=== PATIENT | female | born 1960 | race Caucasian/White ===

== ENCOUNTER 2021-12-22 11:51 | Emergency (ER) | payer OTHER ==
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
[2021-12-22 14:34] VITALS: BP 172/81; TEMP 98; O2SAT 98
== END 2021-12-22 14:25 | disposition home or self-care (01) ==
LOC: ER 11:51
DX: S20.212A Contusion of left front wall of thorax, initial encounter (principal); R51.9 Headache, unspecified; V49.40XA Driver injured in collision with unspecified motor vehicles in traffic accident, initial encounter; J44.9 Chronic obstructive pulmonary disease, unspecified; Z95.1 Presence of aortocoronary bypass graft; Z88.2 Allergy status to sulfonamides
CPT/HCPCS: 70450; 71045; 72125; 99283

== ENCOUNTER 2024-10-02 12:46 | Inpatient (IN) | payer OTHER ==
--- OUTSIDE RECORDS SUMMARY | 2024-10-02 12:52 | XMS REPORT | Continuity of Care Document ---
Author Name Unknown Address [address] [facility] [address] [place] [address] [facility] [address] [facility] [address] [place] [address] Care Team Providers Care [facility] Cook Name Role Phone JOSE VARGHESE Primary Care Physician Unavailab BJ Galvez Attending Clinician Unavailable JOHN NATION K.HJordan Attending Clinician Unavailviridiana Nation MD, John K.H. Attending Clinician + [phone] Bj Philippe MD Attending Clinician [phone] John Nation MD K.H. Attending Clinician + [phone] LISBETH JIMENEZ Attending Clinician Unavailable LISBETH JIMENEZ Attending Clinician Unavailable Lisbeth Jimenez DO Attending Clinician [phone] Doctor Unassigned, Yonah Attending Clinician [facility] Attending Clinician Unavailable Zak Leija RN Attending Clinician UnavailBLESSING Melendez Attending Clinician Unavailable BLESSING ALEXANDER Attending Clinician Unavailable JACEY GARCIA Attending Clinician UnavailGLEN Arellano Attending Clinician Jacey Brown MD Attending Clinician [phone] GORGE CALLAHAN Attending Clinician Unavailable [place] Attending Clinician + [phone] SEAN CASTILLO Attending Clinician Unavail able SEAN CASTILLO Attending Clinician Unavail able JB PHILIPPE Admitting Clinician Unavailable Bj Philippe MD Admitting Clinician [phone] LISBETH JIMENZE Admitting Clinician GLEN Talbot Admitting Clinician Nacho blake Payers Payer Name Policy Type Policy Number Effective Date Expirati on Date Source [employer] MEDICARE [id number] 2023 00:00:00 [employer] MED[employer]VANTAGE [id number] 2020 00:00:00 [employer] [place] [id number] 2019 00:00:00 MEDICARE PART A \\T\\ B [id number] 2019 00:00:00 [facility] [id number] 2019 00:00:00 M[employer] GENERIC [id number] 2018 00:00:00 2019 00:00:00 Problems Condition Name Condition Details Condition Category Status Onset Date Resolution Date Last Treatment Date Treating Clinician Comments Source Abdominal aortic aneurysm (AAA) without rupture, unspecifie d part Abdominal aortic aneurysm (AAA) without rupture, unspecifie d part Disease Active 2023-08 00:00: 00 [facility] Stroke Stroke Disease Active 05-13 00:00: 00 [facility] Abdominal aortic aneurysm (AAA) without rupture Abdominal aortic aneurysm (AAA) without rupture Disease Active 01-24 00:00: 00 [facility] S/P CABG x 4 S/P CABG x 4 Disease Active 01-24 00:00: 00 [facility] 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 Disease Active 01-24 00:00: 00 [facility] Atypical chest pain Atypical chest pain Disease Active 01-24 00:00: 00 [facility] [place] (dyspnea on exertion) [place] (dyspnea on exertion) Disease Active 01-24 00:00: 00 [facility] 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 Disease Active 01-24 00:00: 00 [facility] Family history of premature CAD Family history of premature CAD Disease Active 01-24 00:00: 00 [facility] Essential hypertensi on Essential hypertensi on Disease Active 01-24 00:00: 00 [facility] Dyslipidem ia Dyslipidem ia Disease Active 01-24 00:00: 00 [facility] Tobacco abuse Tobacco abuse Disease Active 01-24 00:00: 00 [facility] Contracept vielka management Contracept vielka management Disease Active 11-03 00:00: 00 [facility] History of hysterecto my History of hysterecto my Disease Active 11-03 00:00: 00 [facility] Vaginal pain Vaginal pain Disease Active 11-03 00:00: 00 [facility] Obese Obese Disease Active 11-03 00:00: 00 [facility] Postmenopa usal atrophic vaginitis Postmenopa usal atrophic vaginitis Disease Active 11-03 00:00: 00 [facility] Incisional hernia Incisional hernia Disease Resolve d 604 00:00: 00 2015-11-04 00:00:00 2022-03-09 00:13:22 [facility] Calculus of ureter Calculus of ureter Disease Resolve d 2006-08 008 00:00: 00 2015-11-04 00:00:00 2015-11-04 13:26:15 [facility] Calculus of kidney Calculus of kidney Disease Resolve d 4-16 00:00: 00 2015-11-04 00:00:00 2015-11-04 13:26:14 [facility] Allergies, Adverse Reactions, Alerts Allergy Name Allergy Type Status Severity Reaction(s) Onset Date Inactive Date Treating Clinician Comments Source Perflutr en Lipid Microsph eres Drug Intolera nce Active Other - See comments 2016-08 00:00: 00 Severe pain at base of head and neck pain. [facility] PERFLUTR EN LIPID MICROSPH ERES DRUG INGREDI Active Med Other-Cmnt 2016-08 00:00: 00 [facility] Sulfa (Sulfona mide Antibiot ics) Propensi ty to adverse reaction s Active Rash 2005-08 00:00: 00 [facility] SULFA (SULFONA MIDE ANTIBIOT ICS) Drug Class Active Anaphylaxis 2005-08 00:00: 00 [facility] Social History Social Habit Start Date Stop Date Quantity Comments Source [facility] History of tobacco use Cigarette Smoker [facility] Alcoholic beverage intake 2024-08-18 00:00:00 2024-08-18 00:00:00 0 /d [facility] Cigarettes smoked current (pack per day) - Reported 2024-08-18 00:00:00 2024-08-18 00:00:00 [facility] Cigarette pack-years 2024-08-18 00:00:00 2024-08-18 00:00:00 [facility] Tobacco use and exposure 2024-08-18 00:00:00 2024-08-18 00:00:00 Smokeless tobacco non-user [facility] Alcohol intake 2023-09-15 00:00:00 2023-09-15 00:00:00 0 /d [facility] Exposure to SARS-CoV-2 (event) 2022-10-11 00:00:00 2022-10-21 09:28:00 Not sure [facility] History of Social function 2022-09-18 00:00:00 2022-09-18 00:00:00 [facility] Tobacco Comment 2022-05-26 00:00:00 2022-05-26 00:00:00 About 1 cigg a day [facility] Sex assigned at 1960 00:00:00 1960 00:00:00 [facility] Smoking Status Start Date Stop Date Source Occasional tobacco smoker 2024-08-18 00:00:00 [facility] Smokes tobacco daily 2024-06-21 00:00:00 [facility] Medications Ordered Medication Name Filled Medication Name Start Date Stop Date Current Medication? Ordering Clinician Indication Dosage Frequency Signature (SIG) Comments Components Source iopamidol (ISOVUE 370-500 mL) injection 90 mL 2023-08 17:00: 00 08-08 16:11 :00 No [id number] 90mL 90 mL, Intravenou s, ONCE, 1 dose, On Thu08/08/24 at 1100, Routine [facility] ranolazine 500 mg 12 hr tablet 2023-08 00:00: 00 Yes 500mg Take 1 tablet by mouth in the morning and 1 tablet in the evening. [facility] ISOSORBIDE MONONITRATE 30 mg 24 hr tablet 2023-08 00:00: 00 Yes 30mg Take 1 tablet by mouth twice daily [facility] empaglifloz in 10 mg tablet 2023-08 00:00: 00 Yes [id number] 10mg Take 1 tablet by mouth in the morning. [facility] metoprolol succinate XL 50 mg 24 hr tablet 2023-08 00:00: 00 09-25 05:59 :00 No [id number] 50mg Take 1 tablet by mouth in the morning and 1 tablet in the evening. Do all this for 90 days. [facility] HYDROcodone -acetaminop hen 5-325 mg tablet 2023-08 00:00: 00 07-04 05:59 :00 No [id number] 1{tbl} Take 1 tablet by mouth every 6 (six) hours as needed for Pain (scale 7-10) for up to 7 days. Indication s: acute pain [facility] pantoprazol e (PROTONIX) EC tablet 40 mg 2023-08 14:00: 00 06-26 17:38 :46 No 40mg 40 mg, Oral, DAILY, First dose on 06/25/24 at 0900, Until Discontinu ed, Routine, Indication for use: None of the above [facility] docusate (COLACE) capsule 100 mg 2023-08 14:00: 00 06-26 17:38 :46 No 100mg 100 mg, Oral, DAILY, First dose on 06/25/24 at 0900, Until Discontinu ed, Routine [facility] buPROPion SR (WELLBUTRIN SR) tablet 150 mg 2023-08 14:00: 00 06-26 17:38 :46 No 150mg 150 mg, Oral, DAILY, First dose on Thu06/25/24 at 0900, Until Discontinu ed, Routine [facility] aspirin chewable tablet 81 mg 2023-08 14:00: 00 06-26 17:38 :46 No 81mg 81 mg, Oral, DAILY, First dose on Thu06/25/24 at 0900, Until Discontinu ed, Routine [facility] heparin (porcine) injection 5,000 Units 2023-08 13:00: 00 06-26 17:38 :46 No 5000U 5,000 Units, Subcutaneo us, Q12H, First dose on Thu06/25/24 at 0800, Until Discontinu ed, Routine [facility] atorvastati n (LIPITOR) tablet 80 mg 2023-08 02:00: 00 06-26 17:38 :46 No 80mg 80 mg, Oral, QHS, First dose on Thu06/24/24 at 2100, Until Discontinu ed, Routine [facility] ranolazine (RANEXA) 12 hr tablet 500 mg 2023-08 01:00: 00 06-26 17:38 :46 No 500mg 500 mg, Oral, BID, First dose on Thu06/24/24 at 2000, Until Discontinu ed, Routine [facility] metoprolol succinate XL (TOPROL XL) tablet 50 mg 2023-08 01:00: 00 06-26 19:38 :47 No 50mg 50 mg, Oral, BID, First dose on Thu06/24/24 at 2000, Until Discontinu ed, Routine [facility] divalproex (DEPAKOTE) delayed release tablet 250 mg 2023-08 01:00: 00 06-26 17:38 :46 No 250mg 250 mg, Oral, Q12H, First dose on Thu06/24/24 at 2000, Until Discontinu ed, Routine [facility] acetaminoph en (TYLENOL) tablet 650 mg 2023-08 18:00: 00 06-26 17:38 :46 No 650mg 650 mg, Oral, Q6H, First dose on Thu06/24/24 at 1300, Until Discontinu ed, Routine [facility] oxyCODONE immediate release tablet 5 mg 2023-08 17:54: 28 06-26 17:38 :46 No 5mg 5 mg, Oral, Q6HPRN, Starting on Thu06/24/24 at 1254, Until 06/26/24 at 1138, Routine, Pain (scale 4-6), english faculty member approving Restricted medication : HUDSON MAO [facility] bupivacaine (preserv free) (SENSORCAIN E MPF) 0.25 % (2.5 mg/mL) injection 2023-08 17:24: 00 06-24 17:44 :13 No PRN, Starting on Thu06/24/24 at 1224, Until Thu06/24/24 at 1244, Routine, Intra-op [facility] ondansetron (ZOFRAN (PF)) injection 4 mg 2023-08 17:08: 10 06-26 17:38 :46 No 4mg [facility] ipratropium -albuteroL (DUONEB) 0.5 mg-3 mg(2.5 mg base)/3 mL nebulizer solution 3 mL 2023-08 17:06: 04 06-26 17:38 :46 No 1{ampul e} [facility] albuterol (VENTOLIN) inhaler 2 Puff 2023-08 17:06: 04 06-26 17:38 :46 No 2{puff} [facility] heparin 10,000 units in NS 1000 mL for vascular 2023-08 13:27: 00 06-24 17:44 :13 No PRN, Starting on Thu06/24/24 at 0827, Intra-op [facility] atorvastati n 80 mg tablet 2023-08 007 00:00: 00 Yes [id number] 80mg TAKE ONE (1) TABLET BY MOUTH AT BEDTIME. [facility] iopamidol (ISOVUE 370-500 mL) injection 96 mL 05-23 18:15: 00 05-23 18:38 :00 No [id number] 96mL 96 mL, Intravenou s, ONCE, 1 dose, On Thu05/23/24 at 1315, Routine [facility] varenicline 1 mg tablet 05-18 00:00: 00 Yes 1mg Take 1 tablet by mouth in the morning and 1 tablet in the evening. [facility] ISOSORBIDE MONONITRATE 30 mg 24 hr tablet 04-14 00:00: 00 07-18 00:00 :00 No 30mg Take 1 tablet by mouth twice daily [facility] empaglifloz in 10 mg tablet 02-17 00:00: 00 07-04 00:00 :00 No [id number] 10mg Take 1 tablet by mouth in the morning. [facility] atorvastati n 80 mg tablet - 00:00: 00 05-30 00:00 :00 No [id number] 80mg TAKE ONE (1) TABLET BY MOUTH AT BEDTIME. [facility] divalproex 250 mg delayed release tablet 10-28 10:04: 35 Yes 250mg Take 1 tablet by mouth every 12 (twelve) hours. [facility] ipratropium -albuteroL 0.5 mg-3 mg(2.5 mg base)/3 mL nebulizer solution 10-28 10:04: 35 Yes 3mL Inhale 3 mL every 6 (six) hours as needed for Wheezing. [facility] ranolazine 500 mg 12 hr tablet 10-21 00:00: 00 Yes 500mg Take 1 tablet by mouth in the morning and 1 tablet in the evening. [facility] aspirin 81 mg chewable tablet 10-15 08:51: 55 Yes [id number] 81mg Take 1 tablet by mouth in the morning. [facility] empaglifloz in 10 mg tablet 10-15 00:00: 00 02-16 00:00 :00 No [id number] 10mg Take 1 tablet by mouth in the morning. [facility] nitroglycer in 0.4 mg sublingual tablet 08-26 00:00: [id number] 1 tablet under the tongue every 5 (five) minutes as needed for Chest pain. [facility] metoprolol succinate XL 100 mg 24 hr tablet 08-26 00:00: 00 06-26 00:00 :00 No [id number] 100mg Take 1 tablet by mouth in the morning and 1 tablet in the evening. [facility] ISOSORBIDE MONONITRATE 30 mg 24 hr tablet 2022-08 00:00: 00 Yes 30mg TAKE ONE (1) TABLET(S) BY MOUTH TWICE A DAY. [facility] mupirocin 2 % ointment 2022-08 00:00: 00 07-14 00:00 :00 No [id number] Apply to area(s) 3 (three) times daily. [facility] docusate 100 mg capsule 2022-08 0 12:51: 16 Yes 100mg Take 1 capsule by mouth in the morning. [facility] iopamidol (ISOVUE 370-500 mL) injection 90 mL 05-19 14:15: 00 05-19 13:30 :00 No [id number] 90mL 90 mL, Intravenou s, ONCE, 1 dose, On Thu05/19/23 at 0915, Routine [facility] traMADOL 50 mg tablet 05-18 07:53: 39 05-18 00:00 :00 No 50mg Take 50 mg by mouth every 6 (six) hours as needed. [facility] Carisoprodo l 250 mg tablet 05-18 07:53: 30 05-18 00:00 :00 No 1{tbl} Take 1 tablet by mouth 2 (two) times daily as needed. [facility] calcium carb/vitami n D2/soyb (ONE-A-DAY BONE STRENGTH ORAL) 05-18 07:53: 27 05-18 00:00 :00 No Take by mouth. [facility] aspirin 81 mg chewable tablet 04-16 13:14: 34 Yes [id number] 81mg Take 1 tablet by mouth in the morning. [facility] atorvastati n 80 mg tablet 03-02 00:00: 00 11-23 00:00 :00 No [id number] 80mg Take 1 tablet by mouth at bedtime. [facility] ISOSORBIDE MONONITRATE 30 mg 24 hr tablet 10-02 00:00: 00 07-20 00:00 :00 No TAKE 1 TABLET BY MOUTH TWICE DAILY [facility] aspirin 81 mg chewable tablet 09-18 09:09: 28 Yes [id number] 81mg Take 81 mg by mouth daily. [facility] traMADOL 50 mg tablet 09-18 08:47: 49 Yes 50mg Take 50 mg by mouth every 6 (six) hours as needed. [facility] nitroglycer in 0.4 mg sublingual tablet 09-18 00:00: 00 08-26 00:00 :[id number] 1 tablet under the tongue every 5 (five) minutes as needed for Chest pain for up to 30 doses. [facility] METOPROLOL SUCCINATE XL 100 mg 24 hr tablet 09-02 00:00: 00 08-26 00:00 :00 No TAKE 1 TABLET BY MOUTH TWICE DAILY [facility] docusate 100 mg capsule 03-18 09:53: 17 Yes 100mg Take 100 mg by mouth daily. [facility] traMADOL 50 mg tablet 03-18 09:53: 17 Yes 50mg Take 50 mg by mouth every 6 (six) hours as needed. [facility] ALPRAZolam (XANAX) 2 mg tablet 03-18 09:53: 17 Yes 2mg Take 1 tablet by mouth at bedtime as needed for Sleep. [facility] aspirin 81 mg chewable tablet 03-18 09:53: 17 Yes [id number] 81mg Take 81 mg by mouth daily. [facility] buPROPion SR 150 mg SR tablet 03-14 00:00: 00 Yes 1{tbl} Take 1 tablet by mouth in the morning. [facility] buPROPion SR 150 mg SR tablet 03-14 00:00: 00 Yes 150mg Take 1 tablet by mouth in the morning. [facility] metoprolol succinate XL 100 mg 24 hr tablet 03-07 00:00: 00 09-02 00:00 :00 No 100mg Take 100 mg by mouth in the morning and 100 mg in the evening. [facility] ATORVASTATI N 80 mg tablet 01-13 00:00: 00 03-02 00:00 :00 No [id number] TAKE 1 TABLET BY MOUTH EVERY NIGHT AT BEDTIME [facility] isosorbide mononitrate 30 mg 24 hr tablet 12-28 00:00: 00 10-02 00:00 :00 No 30mg Take 30 mg by mouth in the morning and 30 mg in the evening. [facility] albuterol 90 mcg/actuati on inhaler 2020-08 00:00: 00 Yes [id number] 2{puff} Inhale 2 Puffs every 6 (six) hours as needed for Wheezing or Shortness of Breath. [facility] tiotropium 18 mcg inhalation 2020-08 00:00: 00 06-24 00:00 :00 No [id number] 18ug Inhale 1 capsule daily. [facility] calcium carb/vitami n D2/soyb (ONE-A-DAY BONE STRENGTH ORAL) 12-04 08:21: 27 Yes Take by mouth. [facility] Carisoprodo l 250 mg tablet 12-04 08:21: 27 Yes 1{tbl} Take 1 tablet by mouth 2 (two) times daily as needed. [facility] nitroglycer in 0.4 mg sublingual tablet 09-17 00:00: 00 09-18 00:00 :[id number] 1 tablet under the tongue every 5 (five) minutes as needed for Chest pain. [facility] DIVALPROEX 250 mg EC tablet 09-29 00:00: 00 05-18 00:00 :00 No [id number] TAKE 1 TABLET BY MOUTH EVERY 12 HOURS [facility] HYDROcodone -acetaminop hen 10-325 mg tablet 2017-08 00:00: 00 Yes [id number] 1{tbl} Take 1 tablet by mouth every 6 (six) hours as needed (atypcial chest pain). [facility] Immunizations Ordered Immunization Name Filled Immunization Name Date Status Comments Source TD, NOS 2007-11-02 00:00:00 Completed [facility] TD, NOS 2007-11-02 00:00:00 Completed [facility] TD, NOS 2007-11-02 00:00:00 Completed [facility] TD, NOS 2007-11-02 00:00:00 Completed [facility] TD, NOS 2007-11-02 00:00:00 Completed [facility] TD, NOS 2007-11-02 00:00:00 Completed [facility] TD, NOS 2007-11-02 00:00:00 Completed [facility] TD, NOS 2007-11-02 00:00:00 Completed [facility] TD, NOS 2007-11-02 00:00:00 Completed [facility] TD, NOS 2007-11-02 00:00:00 Completed [facility] TD, NOS 2007-11-02 00:00:00 Completed [facility] TD, NOS 2007-11-02 00:00:00 Completed [facility] TD, NOS 2007-11-02 00:00:00 Completed [facility] TD, NOS 2007-11-02 00:00:00 Completed [facility] Td 2007-11-02 00:00:00 Completed [facility] Td 2007-11-02 00:00:00 Completed [facility] TD, NOS Unknown Completed [facility] TD, NOS Unknown Completed [facility] TD, NOS Unknown Completed [facility] TD, NOS Unknown Completed [facility] TD, NOS Unknown Completed [facility] TD, NOS Unknown Completed [facility] TD, NOS Unknown Completed [facility] TD, NOS Unknown Completed [facility] TD, NOS Unknown Completed [facility] TD, NOS Unknown Completed [facility] TD, NOS Unknown Completed [facility] TD, NOS Unknown Completed [facility] TD, NOS Unknown Completed [facility] TD, NOS Unknown Completed [facility] TD, NOS Unknown Completed [facility] TD, NOS Unknown Completed [facility] TD, NOS Unknown Completed [facility] TD, NOS Unknown Completed [facility] TD, NOS Unknown Completed [facility] TD, NOS Unknown Completed [facility] TD, NOS Unknown Completed [facility] TD, NOS Unknown Completed [facility] TD, NOS Unknown Completed [facility] Vital Signs Vital Name Observation Time Observation Value Comments S ource Systolic blood pressure 2024-08-18 15:19:00 135 mm[Hg] [facility] Diastolic blood pressure 2024-08-18 15:19:00 72 mm[Hg] [facility] Heart rate 2024-08-18 15:19:00 55 /min [facility] Res[facility] rate 2024-08-18 15:19:00 16 /min obs [facility] Body height 2024-08-18 15:19:00 157.5 cm stated [facility] Body weight 2024-08-18 15:19:00 62.914 kg [facility] BMI 2024-08-18 15:19:00 25.37 kg/m2 [facility] Oxygen saturation in Arterial blood by Pulse oximetry 2024-08-18 15:19:00 95 /min [facility] Body height 2024-06-26 16:40:00 157.5 cm [facility] Body weight 2024-06-26 16:40:00 63.8 kg [facility] BMI 2024-06-26 16:40:00 25.72 kg/m2 [facility] Systolic blood pressure 2024-06-26 16:00:00 133 mm[Hg] [facility] Diastolic blood pressure 2024-06-26 16:00:00 64 mm[Hg] [facility] Heart rate 2024-06-26 16:00:00 68 /min [facility] Respiratory rate 2024-06-26 16:00:00 16 /min [facility] Oxygen saturation in Arterial blood by Pulse oximetry 2024-06-26 16:00:00 96 /min [facility] Body temperature 2024-06-26 14:00:00 37.72 Franchesca [facility] Systolic blood pressure 2024-06-24 10:48:00 133 mm[Hg] [facility] Diastolic blood pressure 2024-06-24 10:48:00 69 mm[Hg] [facility] Heart rate 2024-06-24 10:48:00 65 /min [facility] Body temperature 2024-06-24 10:48:00 35.22 Franchesca [facility] Respiratory rate 2024-06-24 10:48:00 18 /min [facility] Body height 2024-06-24 10:48:00 157.5 cm [facility] Body weight 2024-06-24 10:48:00 63.8 kg [facility] BMI 2024-06-24 10:48:00 25.72 kg/m2 [facility] Oxygen saturation in Arterial blood by Pulse oximetry 2024-06-24 10:48:00 99 /min [facility] Systolic blood pressure 2024-06-09 19:49:00 115 mm[Hg] [facility] Diastolic blood pressure 2024-06-09 19:49:00 61 mm[Hg] [facility] Heart rate 2024-06-09 19:49:00 59 /min [facility] Body temperature 2024-06-09 19:49:00 36.39 Franchesca [facility] Respiratory rate 2024-06-09 19:49:00 20 /min [facility] Body height 2024-06-09 19:49:00 157.5 cm [facility] Body weight 2024-06-09 19:49:00 64.864 kg [facility] BMI 2024-06-09 19:49:00 26.16 kg/m2 [facility] Oxygen saturation in Arterial blood by Pulse oximetry 2024-06-09 19:49:00 97 /min [facility] Systolic blood pressure 2024-05-12 17:54:00 119 mm[Hg] [facility] Diastolic blood pressure 2024-05-12 17:54:00 72 mm[Hg] [facility] Heart rate 2024-05-12 17:54:00 56 /min [facility] Body temperature 2024-05-12 17:54:00 36 Franchesca [facility] Body height 2024-05-12 17:54:00 162.6 cm [facility] Body weight 2024-05-12 17:54:00 63.866 kg [facility] BMI 2024-05-12 17:54:00 24.17 kg/m2 [facility] Oxygen saturation in Arterial blood by Pulse oximetry 2024-05-12 17:54:00 93 /min [facility] Systolic blood pressure 2023-10-29 15:51:00 113 mm[Hg] [facility] Diastolic blood pressure 2023-10-29 15:51:00 71 mm[Hg] [facility] Heart rate 2023-10-29 15:51:00 67 /min [facility] Body height 2023-10-29 15:51:00 154.9 cm [facility] Body weight 2023-10-29 15:51:00 62.687 kg [facility] BMI 2023-10-29 15:51:00 26.11 kg/m2 [facility] Oxygen saturation in Arterial blood by Pulse oximetry 2023-10-29 15:51:00 97 /min [facility] Systolic blood pressure 2023-10-15 14:58:00 145 mm[Hg] [facility] Diastolic blood pressure 2023-10-15 14:58:00 78 mm[Hg] [facility] Heart rate 2023-10-15 14:58:00 62 /min [facility] Oxygen saturation in Arterial blood by Pulse oximetry 2023-10-15 14:58:00 96 /min [facility] Body temperature 2023-10-15 14:57:00 36.39 Franchesca [facility] Respiratory rate 2023-10-15 14:57:00 19 /min [facility] Body height 2023-10-15 14:57:00 154.9 cm per pt [facility] Body weight 2023-10-15 14:57:00 61.417 kg [facility] BMI 2023-10-15 14:57:00 25.58 kg/m2 [facility] Systolic blood pressure 2023-07-08 19:14:00 108 mm[Hg] [facility] Diastolic blood pressure 2023-07-08 19:14:00 61 mm[Hg] [facility] Heart rate 2023-07-08 19:14:00 62 /min [facility] Body temperature 2023-07-08 19:14:00 36.17 [facility] Respiratory rate 2023-07-08 19:14:00 18 /min [facility] Body weight 2023-07-08 19:14:00 64.411 kg [facility] BMI 2023-07-08 19:14:00 25.97 kg/m2 [facility] Oxygen saturation in Arterial blood by Pulse oximetry 2023-07-08 19:14:00 96 /min [facility] Systolic blood pressure 2023-05-27 17:50:00 119 mm[Hg] [facility] Diastolic blood pressure 2023-05-27 17:50:00 70 mm[Hg] [facility] Heart rate 2023-05-27 17:50:00 72 /min [facility] Body temperature 2023-05-27 17:50:00 36.22 [facility] Respiratory rate 2023-05-27 17:50:00 16 /min [facility] Body height 2023-05-27 17:50:00 157.5 cm [facility] Body weight 2023-05-27 17:50:00 63.05 kg [facility] BMI 2023-05-27 17:50:00 25.42 kg/m2 [facility] Oxygen saturation in Arterial blood by Pulse oximetry 2023-05-27 17:50:00 97 /min [facility] Systolic blood pressure 2023-05-18 12:58:00 143 mm[Hg] [facility] Diastolic blood pressure 2023-05-18 12:58:00 73 mm[Hg] [facility] Heart rate 2023-05-18 12:58:00 60 /min [facility] Body temperature 2023-05-18 12:58:00 35.89 [facility] Respiratory rate 2023-05-18 12:58:00 16 /min [facility] Body height 2023-05-18 12:58:00 154.9 cm [facility] Body weight 2023-05-18 12:58:00 64.411 kg [facility] BMI 2023-05-18 12:58:00 26.83 kg/m2 [facility] Oxygen saturation in Arterial blood by Pulse oximetry 2023-05-18 12:58:00 96 /min [facility] Systolic blood pressure 2023-05-14 18:16:00 108 mm[Hg] [facility] Diastolic blood pressure 2023-05-14 18:16:00 63 mm[Hg] [facility] Heart rate 2023-05-14 18:16:00 56 /min [facility] Body temperature 2023-05-14 18:16:00 36.5 [facility] Respiratory rate 2023-05-14 18:16:00 18 /min [facility] Body height 2023-05-14 18:16:00 154.9 cm [facility] Body weight 2023-05-14 18:16:00 63.957 kg [facility] BMI 2023-05-14 18:16:00 26.64 kg/m2 [facility] Oxygen saturation in Arterial blood by Pulse oximetry 2023-05-14 18:16:00 95 /min [facility] Systolic blood pressure 2023-04-30 15:21:00 137 mm[Hg] [facility] Diastolic blood pressure 2023-04-30 15:21:00 86 mm[Hg] [facility] Heart rate 2023-04-30 15:21:00 60 /min [facility] Body height 2023-04-30 15:21:00 154.9 cm [facility] 2023-04-30 15:21:00 64.501 kg [facility] BMI 2023-04-30 15:21:00 26.87 kg/m2 [facility] Oxygen saturation in Arterial blood by Pulse oximetry 2023-04-30 15:21:00 95 /min [facility] Respiratory rate 2023-04-30 15:20:00 19 /min [facility] Systolic blood pressure 2023-04-16 18:19:00 120 mm[Hg] [facility] Diastolic blood pressure 2023-04-16 18:19:00 69 mm[Hg] [facility] Heart rate 2023-04-16 18:19:00 49 /min [facility] Body temperature 2023-04-16 18:19:00 36.17 [facility] Respiratory rate 2023-04-16 18:19:00 17 /min [facility] Body height 2023-04-16 18:19:00 154.9 cm [facility] Body weight 2023-04-16 18:19:00 65.409 kg [facility] BMI 2023-04-16 18:19:00 27.25 kg/m2 [facility] Oxygen saturation in Arterial blood by Pulse oximetry 2023-04-16 18:19:00 98 /min [facility] Systolic blood pressure 2022-10-21 16:04:00 138 mm[Hg] [facility] Diastolic blood pressure 2022-10-21 16:04:00 82 mm[Hg] [facility] Heart rate 2022-10-21 16:04:00 59 /min [facility] Respiratory rate 2022-10-21 16:02:00 19 /min [facility] Body height 2022-10-21 16:02:00 154.9 cm [facility] Body weight 2022-10-21 16:02:00 68.402 kg [facility] BMI 2022-10-21 16:02:00 28.49 kg/m2 [facility] Oxygen saturation in Arterial blood by Pulse oximetry 2022-10-21 16:02:00 95 /min [facility] Systolic blood pressure 2022-09-18 14:49:00 140 mm[Hg] [facility] Diastolic blood pressure 2022-09-18 14:49:00 77 mm[Hg] [facility] Heart rate 2022-09-18 14:49:00 67 /min [facility] Body temperature 2022-09-18 14:49:00 36.33 [facility] Body height 2022-09-18 14:49:00 154.9 cm [facility] Body weight 2022-09-18 14:49:00 68.176 kg [facility] BMI 2022-09-18 14:49:00 28.40 kg/m2 [facility] Oxygen saturation in Arterial blood by Pulse oximetry 2022-09-18 14:49:00 97 /min [facility] Systolic blood pressure 2022-05-26 13:49:00 129 mm[Hg] [facility] Diastolic blood pressure 2022-05-26 13:49:00 83 mm[Hg] [facility] Heart rate 2022-05-26 13:49:00 64 /min [facility] Body temperature 2022-05-26 13:49:00 36.17 [facility]sc[facility] Body height 2022-05-26 13:49:00 154.9 cm [facility] Body weight 2022-05-26 13:49:00 65.318 kg [facility] BMI 2022-05-26 13:49:00 27.21 kg/m2 [facility] Oxygen saturation in Arterial blood by Pulse oximetry 2022-05-26 13:49:00 100 /min [facility] Systolic blood pressure 2022-04-21 15:52:00 116 mm[Hg] [facility] Diastolic blood pressure 2022-04-21 15:52:00 66 mm[Hg] [facility] Heart rate 2022-04-21 15:52:00 59 /min [facility] Body height 2022-04-21 15:52:00 154.9 cm [facility] Body weight 2022-04-21 15:52:00 63.231 kg [facility] BMI 2022-04-21 15:52:00 26.34 kg/m2 [facility] Oxygen saturation in Arterial blood by Pulse oximetry 2022-04-21 15:52:00 99 /min [facility] Procedures Procedure Date / Time Performed Performing Clinician Source MAGNESIUM 2024-06-26 10:53:00 Juliette Hunter [facility] BASIC METABOLIC PANEL (NA, K, CL, CO2, GLUCOSE, BUN, CREATININE, CA) 2024-06-26 10:53:00 Chel Hunter [facility] CBC WITHOUT DIFF 2024-06-26 10:53:00 Lety Hunter [facility] MAGNESIUM 2024-06-26 10:53:00 Juliette Hunter [facility] BASIC METABOLIC PANEL (NA, K, CL, CO2, GLUCOSE, BUN, CREATININE, CA) 2024-06-26 10:53[facility]00 [facility] 2024-06-26 10:53[facility]00 [facility] 2024-06-25 07:45:00 [facility] MAGNESIUM 2024-06-25 07:45:00 J [facility] BASIC METABOLIC PANEL (NA, K, CL, CO2, GLUCOSE, BUN, CREATININE, CA) 2024-06-25 07:45:00 J Luis Rico [facility] CBC WITH DIFF 2024-06-25 07:45:00 J Luis Rico [facility] PHOSPHORUS 2024-06-25 07:45:00 [facility] 2024-06-25 07:45:00 Jacky [facility] BASIC METABOLIC PANEL (NA, K, CL, CO2, GLUCOSE, BUN, CREATININE, CA) 2024-06-25 07:45:00 [facility] 2024-06-25 07:45:00 J Luis Rico [facility] MAGNESIUM 2024-06-24 18:42:00 [facility] (NA, K, CL, CO2, GLUCOSE, BUN, CREATININE, CA) 2024-06-24 18:42:00 [facility] 2024-06-24 18:42:00 Muñoz, [facility] MRSA / MSSA SCREEN BY PCR, TIA 2024-06-24 18:42:00 J Luis Rico [facility] MAGNESIUM 2024-06-24 18:42:00 [facility]IC [facility]OLIC PANEL (NA, K, CL, CO2, GLUCOSE, BUN, CREATININE, CA) 2024-06-24 18:42:00 [facility]FF 2024-06-24 18:42:00 Muñoz, [facility] MRSA / MSSA SCREEN BY PCR, [facility] 2024-06-24 18:42:00 J Luis Rico [facility] FL TIME OR (NON-REPORTABLE) 2024-06-24 17:10:00 [facility] [place] [facility] ([facility]-RE[facility] 2024-06-24 17:10:00 Chel Hunter [facility] POCT ACT HIGH RANGE 2024-06-24 13:41:00 [facility] 2024-06-24 13:29:00 Jose Martin [facility] [id number] - [place] EV[place] RPR DPLMNT [id number] NDGFT 2024-06-24 12:08:00 Jose Martin [facility] [id number] - [place] RPR DPLMNT [id number] NDGFT 2024-06-24 12:08:00 Jose Martin [facility] [id number] - [place] EV[place] RPR DPLMNT AORTO-AORTIC NDGFT 2024-06-24 12:08:00 Jose Martin [facility] FEMORAL ENDARTERECTOMY 2024-06-24 12:08:00 Jose Martin [facility] HB ABO GROUPING 2024-06-24 11:06:00 Jose Martin [facility] HB ABO GROUPING 2024-06-24 11:06:00 Jose Martin [facility] CT ANGIOGRAM ABDOMEN/PELVIS 2024-05-23 18:37:00 Jose Martin [facility] HB CREATININE SERUM/BLOOD FOR IMAGING 2024-05-23 18:16:00 Jose Martin [facility] CONSENT/REFUSAL FOR DIAGNOSIS AND TREATMENT 2023-10-29 15:41:23 Doctor Unassigned, Yonah [facility] CAROTID DUPLEX BILATERAL - BY VASCULAR LAB 2023-06-04 20:29:00 Jose Martin [facility] CT ANGIOGRAM ABDOMEN/PELVIS 2023-05-19 13:29:24 Jose Martin [facility] HB CREATININE SERUM/BLOOD FOR IMAGING 2023-05-19 13:05:00 Jose Martin [facility] AUTHORIZATION TO RELEASE PHI TO [facility] 2023-04-30 05:01:00 Doctor Unassigned, Yonah [facility] HB ECG ROUTINE & RHYTHM STRIP 2023-04-16 18:21:51 John Nation [facility] REFERRAL- REQUEST/RESPONSE 2023-04-10 05:01:00 Doctor Unassigned, Yonah [facility] ASSIGNMENT OF BENEFITS 2022-10-21 15:29:55 Docto r Unassigned, Yonah [facility] Encounters Start Date/Time End Date/Time Encounter Type Admission Type Attending Clinicians Care Facility Care Department Encounter ID Source 2024-08-18 09:30:00 2024-08-18 09:58:48 Outpatient JOHN ROSE [facility] [id number] [facility] 2024-08-18 09:30:00 2024-08-18 09:58:48 Office Visit John Nation [facility] 1.2.840.114 350.1.13.10 4.2.7.2.686 [id number] [facility] 2024-08-08 09:26:29 2024-08-08 23:59:00 Outpatient BJ MUNROE [facility] [id number] [facility] 2024-08-08 09:26:29 2024-08-08 23:59:00 Hospital Encounter Bj Philippe [facility] 1..840.114 350.1.13.10 4.2.7.2.686 [id number] [facility] 2024-07-25 09:45:00 2024-07-25 09:45:00 Outpatient BJ MUNROE [facility] [id number] [facility] 2024-07-17 00:00:00 2024-07-18 08:42:22 Refill Jonh Nation [facility] 1.2.840.114 350.1.13.10 4.2.7.2.686 [id number] [facility] 2024-07-14 14:45:00 2024-07-14 14:55:13 Outpatient R BJ PHILIPPE [facility] [id number] [facility] 2024-07-14 14:45:00 2024-07-14 14:55:13 Office Visit Bj Philippe [facility] 1.2.840.114 350.1.13.10 4.2.7.2.686 [id number] [facility] 2024-07-04 00:00:00 2024-07-04 15:29:30 John Kirk [facility] 1.2.840.114 350.1.13.10 4.2.7.2.686 [id number] [facility] 2024-06-24 05:29:00 2024-06-26 11:34:00 Inpatient R BJ PHILIPPE [facility] [id number] [facility] 2024-06-24 05:29:00 2024-06-26 11:34:00 Hospital Encounter Bj Philippe [facility] 1.2.840.114 350.1.13.10 4.2.7.2.686 [id number] [facility] 2024-06-24 07:00:00 2024-06-24 11:56:00 Surgery Bj Philippe [facility] 1.2.840.114 350.1.13.10 4.2.7.2.686 [id number] [facility] 2024-06-09 15:00:00 2024-06-09 15:32:40 Outpatient R BJ PHILIPPE [facility] [id number] [facility] 2024-06-09 15:00:00 2024-06-09 15:32:40 Office Visit Bj Philippe [facility] 1.2.840.114 350.1.13.10 4.2.7.2.686 [id number] [facility] 2024-05-23 12:51:40 2024-05-23 23:59:00 Outpatient R BJ PHIILPPE [facility] [id number] [facility] 2024-05-23 11:25:10 2024-05-23 23:59:00 Hospital Encounter Bj Philippe [facility] 1.2.840.114 350.1.13.10 4.2.7.2.686 [id number] [facility] 2024-05-12 13:00:00 2024-05-12 13:15:03 Outpatient R BJ PHILIPPE [facility] [id number] [facility] 2024-05-12 13:00:00 2024-05-12 13:15:03 Office Visit Bj Philippe [facility] 1.2.840.114 350.1.13.10 4.2.7.2.686 [id number] [facility] 2024-02-17 00:00:00 2024-02-18 10:13:46 Refill John Nation [facility] 1.2.840.114 350.1.13.10 4.2.7.2.686 [id number] [facility] 2023-11-24 00:00:00 2023-11-24 00:00:00 Refill [facility] 1.2.840.114 350.1.13.10 4.2.7.2.686 [id number] [facility] 2023-10-29 10:00:00 2023-10-29 10:15:31 Outpatient R LISBETH JIMENEZ SHIWAN [facility] [id number] [facility] 2023-10-29 10:00:00 2023-10-29 10:15:31 Office Visit Lisbeth Jimenez [facility] 1.2.840.114 350.1.13.10 4.2.7.2.686 [id number] [facility] 2023-10-29 00:00:00 2023-10-29 00:00:00 Orders Only Doctor Unassigned, Yonah [facility] 1.2840.114 350.1.13.10 4.2.7.2.686 [id number] [facility] 2023-10-20 00:00:00 2023-10-20 00:00:00 Telephone John Nation [facility] 1.2.840.114 350.1.13.10 4.2.7.2.686 [id number] [id number] [facility] 2023-10-16 00:00:00 2023-10-16 00:00:00 Telephone John Nation [facility] 1.2840.114 350.1.13.10 4.2.7.2.686 [id number] [facility] 2023-10-15 09:00:00 2023-10-15 09:57:47 Outpatient R JOHN NATION [facility] [id number] [facility] 2023-10-15 09:00:00 2023-10-15 09:57:47 Office Visit John Nation [facility] 1.2.840.114 350.1.13.10 4.2.7.2.686 [id number] [facility] 2023-10-15 09:30:00 2023-10-15 09:45:00 Mental Health Clinician Visit 2, Adc Lab John Nation [facility] 1.2.840.114 350.1.13.10 4.2.7.2.686 [id number] [facility] 2023-10-15 00:00:00 2023-10-15 00:00:00 Letter (Out) Doctor Unassigned, Yonah [facility] 1.2.840.114 350.1.13.10 4.2.7.2.686 [id number] [facility] 2023-10-06 00:00:00 2023-10-06 00:00:00 Case Management Zak Leija 1.2.840.114 350.1.13.10 4.2.7.2.686 [id number] [facility] 2023-09-28 00:00:00 2023-09-28 00:00:00 Case Management Zak Leija 1.2.840.114 350.1.13.10 4.2.7.2.686 [id number] [facility] 2023-08-26 00:00:00 2023-08-26 00:00:00 Telephone John Nation [facility] 1.2.840.114 350.1.13.10 4.2.7.2.686 [id number] [facility] 2023-07-20 00:00:00 2023-07-20 00:00:00 Refill John Nation [facility] 1.2.840.114 350.1.13.10 4.2.7.2.686 [id number] [facility] 2023-07-08 13:30:00 2023-07-08 14:07:10 Outpatient R BLESSING ALEXANDER [place] [facility] [id number] [facility] 2023-07-08 13:30:00 2023-07-08 14:07:10 Office Visit Blessing Alexander [facility] 1.2.840.114 350.1.13.10 4.2.7.2.686 [id number] [facility] 2023-07-06 13:00:00 2023-07-06 13:00:00 Outpatient R ALEXANDERBLESSING [facility] [id number] [facility] 2023-06-04 14:11:26 2023-06-04 23:59:00 [id number] 2023-06-04 14:11:26 2023-06-04 23:59:00 Hospital Encounter Bj Philippe [facility] 1.2.840.114 350.1.13.10 4.2.7.2.686 [id number] [facility] 2023-05-27 13:15:00 2023-05-27 16:20:29 Outpatient R BLESSING ALEXANDER [facility] [id number] [facility] 2023-05-27 13:15:00 2023-05-27 13:30:00 Office Visit Blessing Alexander [facility] 1.2.840.114 350.1.13.10 4.2.7.2.686 [id number] [facility] 2023-05-19 07:49:04 2023-05-19 23:59:00 Outpatient R BJ PHILIPPE [facility] [id number] [facility] 2023-05-19 07:49:04 2023-05-19 23:59:00 Hospital Encounter Bj Philippe [facility] 1.2.840.114 350.1.13.10 4.2.7.2.686 [id number] [facility] 2023-05-19 08:00:00 2023-05-19 08:00:00 Outpatient R JACEY WHALEY [facility] [id number] [facility] 2023-05-18 09:00:00 2023-05-18 09:00:00 Outpatient R ALEXANDER, BLESSING ALEXANDER, [facility] [id number] [facility] 2023-05-18 08:00:00 2023-05-18 08:21:43 Outpatient R BLESSING ALEXANDER [facility] [id number] [facility] 2023-05-18 08:00:00 2023-05-18 08:21:43 Office Visit [facility] 1.114 350.1.13.10 4.2.7.2.686 [id number] [facility] 2023-05-14 13:30:00 2023-05-14 13:37:20 Outpatient R JOSE MARTIN BJ [facility] [id number] [facility] 2023-05-14 13:30:00 2023-05-14 13:37:20 Office Visit Jose Martin Bj [facility] 1.114 350.1.13.10 4.2.7.2.686 [id number] [facility] 2023-04-30 10:30:00 2023-04-30 10:54:18 Outpatient R LISBETH JIMENEZ SHINHEkta [facility] [id number] [facility] 2023-04-30 10:30:00 2023-04-30 10:54:18 Office Visit Lisbeth Jimenez [facility] 1.840.114 350.1.13.10 4.2.7.2.686 [id number] [facility] 2023-04-30 00:00:00 2023-04-30 00:00:00 Orders Only Doctor Unassigned, Yonah [facility] 1.84.114 350.1.13.10 4.2.7.2.686 [id number] [facility] 2023-04-16 13:00:00 2023-04-16 13:48:05 Outpatient R JOHN NATION [facility] [id number] [facility] 2023-04-16 13:00:00 2023-04-16 13:48:05 Office Visit John NationMichelleJordan [facility] 1.2.84.114 350.1.13.10 4.2.7.2.686 [id number] [facility] 2023-04-10 00:00:00 2023-04-10 00:00:00 Orders Only Doctor Unassigned, Yonah [facility] 1.2.114 350.1.13.10 4.2.7.2.686 [id number] [facility] 2023-03-18 09:30:00 2023-03-18 09:30:00 Outpatient R JOHN NATION [facility] [id number] [facility] 2023-03-02 00:00:00 2023-03-02 00:00:00 Refill John NationMichelleJordan [facility] 1.840.114 350.1.13.10 4.2.7.2.686 [id number] [facility] 2022-10-28 07:44:39 2022-10-28 23:59:00 Outpatient R LISBETH JIMENEZ SHIWAN [facility] [id number] [facility] 2022-10-28 07:44:39 2022-10-28 23:59:00 Hospital Encounter Libseth Jimenez [facility] 1.284.114 350.1.13.10 4.2.7.2.686 [id number] [facility] 2022-10-21 10:00:00 2022-10-21 10:18:40 Office Visit Lisbeth Jimenez [facility] 1.284.114 350.1.13.10 4.2.7.2.686 [id number] [facility] 2022-10-21 10:00:00 2022-10-21 10:18:40 Outpatient R LISBETH JIMENEZ SHIWAN [facility] [id number] [facility] 2022-10-21 00:00:00 2022-10-21 00:00:00 Orders Only Doctor Unassigned, Yonah [facility] 1.2.840.114 350.1.13.10 4.2.7.2.686 [id number] [facility] 2022-10-02 00:00:00 2022-10-02 00:00:00 Refill John Nation [facility] 1.2.840.114 350.1.13.10 4.2.7.2.686 [id number] [facility] 2022-09-19 00:00:00 2022-09-19 00:00:00 Telephone John Nation [facility] 1.2.840.114 350.1.13.10 4.2.7.2.686 [id number] [facility] 2022-09-18 07:46:30 2022-09-18 23:59:00 Outpatient R JOHN NATION [facility] [id number] [facility] 2022-09-18 09:30:00 2022-09-18 09:45:00 Mental Health Clinician Visit 2, Adc Lab John Nation [facility] 1.2.840.114 350.1.13.10 4.2.7.2.686 [id number] [facility] 2022-09-18 09:00:00 2022-09-18 09:21:58 Office Visit John Nation [facility] 1..840.114 350.1.13.10 4.2.7.2.686 [id number] [facility] 2022-09-18 09:00:00 2022-09-18 09:00:00 Outpatient R CHAPIS LUIS MSANDRA [facility] [id number] [facility] 2022-09-02 00:00:00 2022-09-02 00:00:00 [facility] 1..840.114 350.1.13.10 4.2.7.2.686 [id number] [facility] 2022-05-26 07:59:44 2022-05-26 23:59:00 Outpatient R GLEN WRIGHT [facility] [id number] [facility] 2022-05-26 09:30:00 2022-05-26 09:40:38 Office Visit Jacey Garcia [facility] 1..840.114 350.1.13.10 4.2.7.2.686 [id number] [facility] 2022-04-24 09:38:57 2022-04-24 23:59:00 Outpatient R GORGE CALLAHAN [facility] [id number] [facility] 2022-04-21 10:30:00 2022-04-21 11:17:23 Outpatient R LISBETH JIMENEZ [facility] [id number] [facility] 2022-04-21 10:30:00 2022-04-21 11:17:23 Office Visit Lisbeth Jimenez [facility] 1..840.114 350.1.13.10 4.2.7.2.686 [id number] [facility] 2022-04-21 10:30:00 2022-04-21 11:17:23 Outpatient R LISBETH JIMENEZ [facility] [id number] [facility] 2022-04-10 00:00:00 2022-04-10 00:00:00 Orders Only Doctor Unassigned, Yonah [facility] 1.2.840.114 350.1.13.10 4.2.7.2.686 [id number] [facility] 2022-03-18 10:00:00 2022-03-18 10:22:57 Outpatient R JOHN NATION [facility] [id number] [facility] 2022-03-18 10:00:00 2022-03-18 10:22:57 Office Visit [facility] 1.2.840.114 350.1.13.10 4.2.7.2.686 [id number] [facility] 2022-03-18 10:00:00 2022-03-18 10:22:57 Outpatient R CHAPIS LUIS [facility] [id number] [facility] 2022-02-17 09:00:00 2022-02-17 09:00:00 Outpatient R CHAPIS LUIS [facility] [id number] [facility] 2022-02-17 00:00:00 2022-02-17 00:00:00 Telephone [place] [facility] 1.2.840.114 350.1.13.10 4.2.7.2.686 [id number] [id number] [facility] 2022-01-23 00:00:00 2022-01-23 00:00:00 Telephone [place] [facility] 1.2.840.114 350.1.13.10 4.2.7.2.686 [id number] [facility] 2022-01-23 00:00:00 2022-01-23 00:00:00 Orders Only Doctor Unassigned, Yonah [facility] 1.2840.114 350.1.13.10 4.2.7.2.686 [id number] [id number] [facility] 2022-01-13 00:00:00 2022-01-13 00:00:00 Refill [place] [facility] 1.2.840.114 350.1.13.10 4.2.7.2.686 [id number] [id number] [facility] 2021-12-10 09:45:00 2021-12-10 10:00:00 Mental Health Clinician Visit 2, Adc Lab [place] [facility] 1.2.840.114 350.1.13.10 4.2.7.2.686 [id number] [facility] 2021-12-10 09:45:00 2021-12-10 09:45:00 Outpatient R [place] NATION [facility] [id number] [facility] 2021-12-10 00:00:00 2021-12-10 00:00:00 Telephone [place] [facility] 1.2.840.114 350.1.13.10 4.2.7.2.686 [id number] [id number] [facility] 2021-12-09 00:00:00 2021-12-09 00:00:00 Refill [place] [facility] 1.2.840.114 350.1.13.10 4.2.7.2.686 [id number] [facility] 2021-12-06 00:00:00 2021-12-06 00:00:00 Refill [place] [facility] 1.2.840.114 350.1.13.10 4.2.7.2.686 [id number] [facility] 2021-11-21 11:30:00 2021-11-21 11:48:01 Office Visit Nikki Glen [facility] 1..840.114 350.1.13.10 4.2.7.2.686 [id number] [facility] 2021-11-21 11:30:00 2021-11-21 11:48:01 Outpatient R AMRIT WRIGHTRIQUE [facility] [id number] [facility] 2021-11-21 11:30:00 2021-11-21 11:30:00 Outpatient R AMRIT WRIGHTRIQUE [facility] [id number] [facility] 2021-11-15 00:00:00 2021-11-15 00:00:00 Telephone [place] [facility] 1.2.840.114 350.1.13.10 4.2.7.2.686 [id number] [facility] 2021-11-04 07:49:27 2021-11-04 08:50:00 Outpatient R [facility] NATION [facility] [id number] [facility] 2021-11-04 08:00:00 2021-11-04 08:00:00 Outpatient R [facility] N[facility] [id number] [facility] 2021-10-14 08:30:00 2021-10-14 09:20:46 Outpatient R LISBETH JIMENEZ SHIWAN [facility] [id number] [facility] 2021-10-14 08:30:00 2021-10-14 09:20:46 Office Visit Lisbeth Jimenez [facility] 1.2840.114 350.1.13.10 4.2.7.2.686 [id number] [facility] 2021-10-14 08:30:00 2021-10-14 09:20:46 Outpatient R LISBETH JIMENEZ SHIWAN [facility] [id number] [facility] 2021-10-11 09:00:00 2021-10-11 09:00:00 Outpatient R LISBETH JIMENEZ SHINHEkta [facility] [id number] [facility] 2021-10-11 09:00:00 2021-10-11 09:00:00 Outpatient R LISBETH JIMENEZ SHINHEkta [facility] [id number] [facility] 2021-09-19 09:00:00 2021-09-19 09:20:25 Outpatient R [facility] NATION [facility] [id number] [facility] 2021-09-19 09:00:00 2021-09-19 09:20:25 Office Visit John Nation [facility] 1..840.114 350.1.13.10 4.2.7.2.686 [id number] [facility] 2021-09-19 09:00:00 2021-09-19 09:20:25 Outpatient R [facility] N[place] [facility] [id number] [facility] 2021-09-19 00:00:00 2021-09-19 00:00:00 Orders Only Doctor Unassigned, Yonah [facility] 1.840.114 350.1.13.10 4.2.7.2.686 [id number] [facility] 2021-07-08 00:00:00 2021-07-08 00:00:00 Telephone Lisbeth Jimenez [facility] 1.2840.114 350.1.13.10 4.2.7.2.686 [id number] [facility] 2021-07-01 09:09:33 2021-07-01 23:59:00 Outpatient R LISBETH JIMENEZ SHINHEkta [facility] [id number] [facility] 2021-07-01 09:09:33 2021-07-01 23:59:00 Hospital Encounter Lisbeth Jimenez [facility] 1..840.114 350.1.13.10 4.2.7.2.686 [id number] [facility] 2021-06-25 00:00:00 2021-06-25 00:00:00 [facility] [id number] [facility] 2021 09:27:31 2021 10:05:06 Office Visit Lisbeth Jimenez [facility] 1..840.114 350.1.13.10 4.2.7.2.686 [id number] [facility] 2021 09:30:00 2021 09:30:00 Out[facility] [id number] [facility] 2021-05-20 08:46:23 2021-05-20 09:04:51 Office Visit [place] [facility] 1.2.840.114 350.1.13.10 4.2.7.2.686 [id number] [facility] 2021-05-20 09:00:00 2021-05-20 09:00:00 Outpatient JOHN ROSE [facility] [id number] [facility] 2021-04-08 00:00:00 2021-04-08 00:00:00 Patient Secure Msg Doctor Unassigned, Yonah [facility] 1..840.114 350.1.13.10 4.2.7.2.686 [id number] [facility] 2021-04-02 09:00:00 2021-04-02 09:00:00 Outpatient R CHAPIS LUIS MSANDRA [facility] [id number] [facility] 2020-12-04 08:00:00 2020-12-04 08:00:00 Outpatient R CHAPIS LUIS MSANDRA [facility] [id number] [facility] 2020-12-04 08:00:00 2020-12-04 08:00:00 Outpatient R CHAPIS SENDSANDRA [facility] [id number] [facility] 2020-11-21 07:30:00 2020-11-21 07:30:00 Outpatient R [facility] NATION [facility] [id number] [facility] 2020-11-20 00:00:00 2020-11-20 00:00:00 Patient Secure Msg Doctor Unassigned, Yonah [facility] 1.2.840.114 350.1.13.10 4.2.7.2.686 [id number] [facility] 2020-11-19 09:45:00 2020-11-19 09:45:00 Outpatient R [facility] N[facility] [id number] [facility] 2020-10-23 11:30:00 2020-10-23 11:30:00 Outpatient R CHAPIS SENDSANDRA [facility] [id number] [facility] 2020-10-22 08:00:00 2020-10-22 08:00:00 Outpatient R [facility] NATION [facility] [id number] [facility] 2020-10-08 08:00:00 2020-10-08 08:00:00 Outpatient R [facility] [id number] [facility] 2020-10-02 08:30:00 2020-10-02 08:30:00 Outpatient R CHAPIS SENDSANDRA [facility] [id number] [facility] 2020-09-17 11:00:00 2020-09-17 11:00:00 Outpatient JOHN ROSE [facility] [id number] [facility] 2020-09-14 08:00:00 2020-09-14 08:00:00 Outpatient R [facility] [id number] [facility] 2020-09-13 13:00:00 2020-09-13 13:00:00 Outpatient JOHN ROSE [facility] [id number] [facility] 2020-06-28 13:30:00 2020-06-28 13:30:00 Outpatient JOHN ROSE [facility] [id number] [facility] 2019-08-09 08:29:19 2019-08-09 23:59:00 Outpatient LISBETH MARQUEZ SHIWAN [facility] [id number] [facility] 2019-02-08 11:30:00 2019-02-08 11:30:00 Outpatient SEAN SOTO HOWARD [facility] [id number] [facility] 2018-12-16 10:00:00 2018-12-16 09:04:22 Outpatient JOHN ROSE [facility] [id number] [facility] Results Test Description Test Time Test Comments Results Result Co [facility] Nldzp0517-16-35 20:30:31* Test Item Value Reference Range Interpretation Comme nts ACTHR (test code = 9725975978) 280 96-152 H Lab Interpretation (test cod e = 44447-9) Abnormal [facility]2024-11-03 11:41:44* Test Item Value Reference Range Interpretation Comme nts MAGNESIUM (test code = 5940958650) 1.9 mg/dL 1.7-2.4 Lab Interpretation (test cod e = 10418-5) Normal [facility] (NA, K, CL, CO2, GLUCOSE, BUN, CREATININE, CA)2024-06-26 11:41:44* Test Item Value Reference Range Interpretation Comme nts NA (test code = 3068955729) 138 mmol/L 135-145 K (test code = 4239465495) 3.5 mmol/L 3.5-5.0 CL (test code = 7238517235) 111 mmol/L 98-108 H CO2 TOTAL (test code = 2603619479) 26 mmol/L 23-31 AGAP (test code = 0271802921) 1 2-16 L BUN (test code = 4676838774) 13 mg/dL 7-23 GLUCOSE (test code = 2924009507) 103 mg/dL 70-110 CREATININE (test code = 2160-0) 0.53 mg/dL 0.50-1.04 CALCIUM (test code = 2572119539) 8.4 mg/dL 8.6-10.6 L eGFR (test code = 17252-4) 103.4 mL/min/1.73m2 CKD-EPI eGFR (2020). Assuming creatinine has been stable day-to-day for at least three months, the eGFR indicates Category G1 (>= 90 mL/min/1.73 m2) Lab Interpretation (test code = 63126-8) Abnormal [facility]2024-11-03 11:41:44* Test Item Value Reference Range Interpretation Comme nts MAGNESIUM (test code = 4527817410) 1.9 mg/dL 1.7-2.4 Lab Interpretation (test cod e = 25796-3) Normal [facility] (NA, K, CL, CO2, GLUCOSE, BUN, CREATININE, CA)2024-06-26 11:41:44* Test Item Value Reference Range Interpretation Comme nts NA (test code = 0064257382) 138 mmol/L 135-145 K (test code = 9467695192) 3.5 mmol/L 3.5-5.0 CL (test code = 3391403177) 111 mmol/L 98-108 H CO2 TOTAL (test code = 3309528717) 26 mmol/L 23-31 AGAP (test code = 3617821897) 1 2-16 L BUN (test code = 8282736169) 13 mg/dL 7-23 GLUCOSE (test code = 7224965926) 103 mg/dL 70-110 CREATININE (test code = 2160-0) 0.53 mg/dL 0.50-1.04 CALCIUM (test code = 7518216450) 8.4 mg/dL 8.6-10.6 L eGFR (test code = 65478-3) 103.4 mL/min/1.73m2 CKD-EPI eGFR (2020). Assuming creatinine has been stable day-to-day for at least three months, the eGFR indicates Category G1 (>= 90 mL/min/1.73 m2) Lab Interpretation (test code = 01796-9) Abnormal [facility] without Ltti1779-61-88 11:35:20* Test Item Value Reference Range Interpretation Comme nts WBC (test code = 6690-2) 6.70 4.30-11.10 RBC (test code = 789-8) 3.98 3.93-5.25 HGB (test code = 718-7) 12.6 g/dL 11.6-15.0 HCT (test code = 4544-3) 36.9 % 35.7-45.2 MCH (test code = 785-6) 31.7 pg 25.9-32.8 MCV (test code = 787-2) 92.7 fL 80.6-95.5 MCHC (test code = 786-4) 34.1 g/dL 31.6-35.1 PLT (test code = 777-3) 101 166-358 L MPV (test code = 10574-3) 10.6 fL 9.5-12.9 RDW-CV (test code = 788-0) 12.9 % 12.0-15.5 RDW-SD (test code = 99917-1) 44.2 fL 39.0-49.9 NRBC x10^3 (test code = 4191126765) See_Comment [Automated Dgimed Orthoa ge] The system which generated this result transmitted reference range: 10*3/?L. The reference range was not used to interpret this result as normal/abnormal. NRBC/100 WBC (test code = 9983515978) 0.0 0.0-10.0 IPF % (test code = 2041489546) 3.5 % 1.3-7.7 Platelet count measured by fluorescence method. Lab Interpretation (test code = 45588-7) Abnormal [facility] without Oiyw6058-10-97 11:35:20* Test Item Value Reference Range Interpretation Comme nts WBC (test code = 6690-2) 6.70 4.30-11.10 RBC (test code = 789-8) 3.98 3.93-5.25 HGB (test code = 718-7) 12.6 g/dL 11.6-15.0 HCT (test code = 4544-3) 36.9 % 35.7-45.2 MCH (test code = 785-6) 31.7 pg 25.9-32.8 MCV (test code = 787-2) 92.7 fL 80.6-95.5 MCHC (test code = 786-4) 34.1 g/dL 31.6-35.1 PLT (test code = 777-3) 101 166-358 L MPV (test code = 86423-6) 10.6 fL 9.5-12.9 RDW-CV (test code = 788-0) 12.9 % 12.0-15.5 RDW-SD (test code = 41372-6) 44.2 fL 39.0-49.9 NRBC x10^3 (test code = 2316762023) See_Comment [Automated Dgimed Orthoa ge] The system which generated this result transmitted reference range: 10*3/?L. The reference range was not used to interpret this result as normal/abnormal. NRBC/100 WBC (test code = 8646966046) 0.0 0.0-10.0 IPF % (test code = 2322164538) 3.5 % 1.3-7.7 Platelet count measured by fluorescence method. Lab Interpretation (test code = 16610-1) Abnormal [facility] with Bugogeahuawe6738-73-87 08:45:45* Test Item Value Reference Range Interpretation Comme nts WBC (test code = 6690-2) 9.26 4.30-11.10 RBC (test code = 789-8) 4.18 3.93-5.25 HGB (test code = 718-7) 13.3 g/dL 11.6-15.0 HCT (test code = 4544-3) 38.3 % 35.7-45.2 MCV (test code = 787-2) 91.6 fL 80.6-95.5 MCH (test code = 785-6) 31.8 pg 25.9-32.8 MCHC (test code = 786-4) 34.7 g/dL 31.6-35.1 RDW-SD (test code = 15133-1) 42.4 fL 39.0-49.9 RDW-CV (test code = 788-0) 12.8 % 12.0-15.5 PLT (test code = 777-3) 124 166-358 L MPV (test code = 54639-8) 10.3 fL 9.5-12.9 IPF % (test code = 7297228727) 3.3 % 1.3-7.7 Platelet count measured by fluorescence method. NRBC/100 WBC (test code = 9989816726) 0.0 0.0-10.0 NRBC x10^3 (test code = 9933533067) See_Comment [Automated messa ge] The system which generated this result transmitted reference range: 10*3/?L. The reference range was not used to interpret this result as normal/abnormal. GRAN MAT (NEUT) % (test code = 770-8) 65.9 % IMM GRAN % (test code = 4447123452) 0.50 % LYMPH % (test code = 736-9) 20.8 % MONO % (test code = 5905-5) 12.3 % EOS % (test code = 713-8) 0.3 % BASO % (test code = 706-2) 0.2 % GRAN MAT x10^3(ANC) (test code = 1657225824) 6.09 10*3/uL 1.88-7.09 IMM GRAN x10^3 (test code = 5215083337) 0.05 10*3/uL 0.00-0.06 LYMPH x10^3 (test code = 731-0) 1.93 10*3/uL 1.32-3.29 MONO x10^3 (test code = 742-7) 1.14 10*3/uL 0.33-0.92 H EOS x10^3 (test code = 711-2) 0.03 10*3/uL 0.03-0.39 BASO x10^3 (test code = 704-7) 0.01-0.07 Lab Interpretation (test code = 15895-0) Abnormal [facility] with Dbpaiaralico5218-74-69 08:45:45* Test Item Value Reference Range Interpretation Comme nts WBC (test code = 6690-2) 9.26 4.30-11.10 RBC (test code = 789-8) 4.18 3.93-5.25 HGB (test code = 718-7) 13.3 g/dL 11.6-15.0 HCT (test code = 4544-3) 38.3 % 35.7-45.2 MCV (test code = 787-2) 91.6 fL 80.6-95.5 MCH (test code = 785-6) 31.8 pg 25.9-32.8 MCHC (test code = 786-4) 34.7 g/dL 31.6-35.1 RDW-SD (test code = 84870-8) 42.4 fL 39.0-49.9 RDW-CV (test code = 788-0) 12.8 % 12.0-15.5 PLT (test code = 777-3) 124 166-358 L MPV (test code = 62623-7) 10.3 fL 9.5-12.9 IPF % (test code = 6976965767) 3.3 % 1.3-7.7 Platelet count measured by fluorescence method. NRBC/100 WBC (test code = 0654614196) 0.0 0.0-10.0 NRBC x10^3 (test code = 3291966252) See_Comment [Automated Dgimed Orthoa ge] The system which generated this result transmitted reference range: 10*3/?L. The reference range was not used to interpret this result as normal/abnormal. GRAN MAT (NEUT) % (test code = 770-8) 65.9 % IMM GRAN % (test code = 4674543922) 0.50 % LYMPH % (test code = 736-9) 20.8 % MONO % (test code = 5905-5) 12.3 % EOS % (test code = 713-8) 0.3 % BASO % (test code = 706-2) 0.2 % GRAN MAT x10^3(ANC) (test code = 3013654763) 6.09 10*3/uL 1.88-7.09 IMM GRAN x10^3 (test code = 9613478780) 0.05 10*3/uL 0.00-0.06 LYMPH x10^3 (test code = 731-0) 1.93 10*3/uL 1.32-3.29 MONO x10^3 (test code = 742-7) 1.14 10*3/uL 0.33-0.92 H EOS x10^3 (test code = 711-2) 0.03 10*3/uL 0.03-0.39 BASO x10^3 (test code = 704-7) 0.01-0.07 Lab Interpretation (test code = 67670-6) Abnormal [facility] Metabolic Panel (NA, K, CL, CO2, GLUCOSE, BUN, CREATININE, CA)2024-06-25 08:38:00* Test Item Value Reference Range Interpretation Comme nts NA (test code = 7601153957) 138 mmol/L 135-145 K (test code = 6069142604) 3.8 mmol/L 3.5-5.0 CL (test code = 7705438400) 111 mmol/L 98-108 H CO2 TOTAL (test code = 5098434881) 24 mmol/L 23-31 AGAP (test code = 1935044123) 3 2-16 BUN (test code = 3312881346) 11 mg/dL 7-23 GLUCOSE (test code = 7884051952) 101 mg/dL 70-110 CREATININE (test code = 2160-0) 0.62 mg/dL 0.50-1.04 CALCIUM (test code = 5757757696) 8.6 mg/dL 8.6-10.6 eGFR (test code = 49881-9) 99.6 mL/min/1.73m2 CKD-EPI eGFR (2020). Assuming creatinine has been stable day-to-day for at least three months, the eGFR indicates Category G1 (>= 90 mL/min/1.73 m2) Lab Interpretation (test code = 59345-4) [facility] Szjhp1870-90-95 08:38:00* Test Item Value Reference Range Interpretation Comme nts MAGNESIUM (test code = 5643931390) 1.9 mg/dL 1.7-2.4 Lab Interpretation (test cod e = 84569-2) [facility] Sdnbe1523-66-48 08:38:00* Test Item Value Reference Range Interpretation Comme nts PHOSPHORUS (test code = 6679102908) 4.5 mg/dL 2.5-5.0 Lab Interpretation (test cod e = 04325-0) Normal [facility] Metabolic Panel (NA, K, CL, CO2, GLUCOSE, BUN, CREATININE, CA)2024-06-25 08:38:00* Test Item Value Reference Range Interpretation Comme nts NA (test code = 6596474407) 138 mmol/L 135-145 K (test code = 4114779021) 3.8 mmol/L 3.5-5.0 CL (test code = 4814267769) 111 mmol/L 98-108 H CO2 TOTAL (test code = 7679904454) 24 mmol/L 23-31 AGAP (test code = 8915665213) 3 2-16 BUN (test code = 6019258976) 11 mg/dL 7-23 GLUCOSE (test code = 4650339292) 101 mg/dL 70-110 CREATININE (test code = 2160-0) 0.62 mg/dL 0.50-1.04 CALCIUM (test code = 4333009663) 8.6 mg/dL 8.6-10.6 eGFR (test code = 65748-2) 99.6 mL/min/1.73m2 CKD-EPI eGFR (2020). Assuming creatinine has been stable day-to-day for at least three months, the eGFR indicates Category G1 (>= 90 mL/min/1.73 m2) Lab Interpretation (test code = 62933-9) [facility] Obqyb2190-26-29 08:38:00* Test Item Value Reference Range Interpretation Comme nts MAGNESIUM (test code = 6538501133) 1.9 mg/dL 1.7-2.4 Lab Interpretation (test cod e = 18951-0) [facility] Licyt[facility]20-56-33 08:38:00* Test Item Value Reference Range Interpretation Comme nts PHOSPHORUS (test code = 5764063406) 4.5 mg/dL 2.5-5.0 Lab Interpretation (test cod e = 57934-8) Normal [facility] without Yfjh7786-17-45 19:24:46* Test Item Value Reference Range Interpretation Comme nts WBC (test code = 6690-2) 7.43 4.30-11.10 RBC (test code = 789-8) 4.46 3.93-5.25 HGB (test code = 718-7) 13.9 g/dL 11.6-15.0 HCT (test code = 4544-3) 40.3 % 35.7-45.2 MCH (test code = 785-6) 31.2 pg 25.9-32.8 MCV (test code = 787-2) 90.4 fL 80.6-95.5 MCHC (test code = 786-4) 34.5 g/dL 31.6-35.1 PLT (test code = 777-3) 131 166-358 L MPV (test code = 65790-4) 10.5 fL 9.5-12.9 RDW-CV (test code = 788-0) 12.6 % 12.0-15.5 RDW-SD (test code = 16725-8) 41.8 fL 39.0-49.9 NRBC x10^3 (test code = 9314891822) See_Comment [Automated Dgimed Orthoa ge] The system which generated this result transmitted reference range: 10*3/?L. The reference range was not used to interpret this result as normal/abnormal. NRBC/100 WBC (test code = 1450927944) 0.0 0.0-10.0 IPF % (test code = 7176187766) 4.1 % 1.3-7.7 Platelet count measured by fluorescence method. Lab Interpretation (test code = 85990-9) Abnormal [facility] without Icsc6856-88-92 19:24:46* Test Item Value Reference Range Interpretation Comme nts WBC (test code = 6690-2) 7.43 4.30-11.10 RBC (test code = 789-8) 4.46 3.93-5.25 HGB (test code = 718-7) 13.9 g/dL 11.6-15.0 HCT (test code = 4544-3) 40.3 % 35.7-45.2 MCH (test code = 785-6) 31.2 pg 25.9-32.8 MCV (test code = 787-2) 90.4 fL 80.6-95.5 MCHC (test code = 786-4) 34.5 g/dL 31.6-35.1 PLT (test code = 777-3) 131 166-358 L MPV (test code = 99821-1) 10.5 fL 9.5-12.9 RDW-CV (test code = 788-0) 12.6 % 12.0-15.5 RDW-SD (test code = 12213-9) 41.8 fL 39.0-49.9 NRBC x10^3 (test code = 3159632660) See_Comment [Automated Dgimed Orthoa ge] The system which generated this result transmitted reference range: 10*3/?L. The reference range was not used to interpret this result as normal/abnormal. NRBC/100 WBC (test code = 1756975558) 0.0 0.0-10.0 IPF % (test code = 1169619540) 4.1 % 1.3-7.7 Platelet count measured by fluorescence method. Lab Interpretation (test code = 12583-8) Abnormal [facility] Metabolic Panel (NA, K, CL, CO2, GLUCOSE, BUN, CREATININE, CA)2024-06-24 19:20:03* Test Item Value Reference Range Interpretation Comme nts NA (test code = 2401631560) 138 mmol/L 135-145 K (test code = 7932959508) 4.3 mmol/L 3.5-5.0 CL (test code = 2732759925) 112 mmol/L 98-108 H CO2 TOTAL (test code = 1274239168) 23 mmol/L 23-31 AGAP (test code = 7564269010) 3 2-16 BUN (test code = 8777381787) 9 mg/dL 7-23 GLUCOSE (test code = 8828712378) 118 mg/dL 70-110 H CREATININE (test code = 2160-0) 0.53 mg/dL 0.50-1.04 CALCIUM (test code = 8323171039) 8.5 mg/dL 8.6-10.6 L eGFR (test code = 97358-2) 103.4 mL/min/1.73m2 CKD-EPI eGFR (2020). Assuming creatinine has been stable day-to-day for at least three months, the eGFR indicates Category G1 (>= 90 mL/min/1.73 m2) Lab Interpretation (test code = 96621-4) [facility]* Test Item Value Reference Range Interpretation Comme nts MAGNESIUM (test code = 4861686887) 2.0 mg/dL 1.7-2.4 Lab Interpretation (test cod e = 74189-6) Normal [facility] Metabolic Panel (NA, K, CL, CO2, GLUCOSE, BUN, CREATININE, CA)2024-06-24 19:20:03* Test Item Value Reference Range Interpretation Comme nts NA (test code = 3421899793) 138 mmol/L 135-145 K (test code = 4892570621) 4.3 mmol/L 3.5-5.0 CL (test code = 1637538509) 112 mmol/L 98-108 H CO2 TOTAL (test code = 6925019985) 23 mmol/L 23-31 AGAP (test code = 7538878575) 3 2-16 BUN (test code = 0979274897) 9 mg/dL 7-23 GLUCOSE (test code = 5653383714) 118 mg/dL 70-110 H CREATININE (test code = 2160-0) 0.53 mg/dL 0.50-1.04 CALCIUM (test code = 5082306249) 8.5 mg/dL 8.6-10.6 L eGFR (test code = 46954-4) 103.4 mL/min/1.73m2 CKD-EPI eGFR (2020). Assuming creatinine has been stable day-to-day for at least three months, the eGFR indicates Category G1 (>= 90 mL/min/1.73 m2) Lab Interpretation (test code = 57166-3) Abnormal [facility]2024-11-01 19:20:03* Test Item Value Reference Range Interpretation Comme nts MAGNESIUM (test code = 6479288887) 2.0 mg/dL 1.7-2.4 Lab Interpretation (test cod e = 21922-4) Normal [facility] TIME OR (NON-REPORTABLE)2024-06-24 17:46:28 These images do not require a Radiology diagnostic report.[facility] TIME OR (NON-REPORTABLE)2024-06-24 17:46:28These images do not require a Radiology diagnostic report.[facility][id number] 18:51:16CT Abdomen and Pelvis without and with intravenous contrast. CLINICAL HISTORY: Abdominal pain, acute, nonlocalized. DOSE: Up-to-date CT equipment and radiation dose reduction techniques wereemployed.CTDIvol: ?8.59+2.22+9.55 mGy. DLP: 410.52+3.22+416 mGy- cm. TECHNIQUE : Contiguous axial imaging from the level of the lung basesthrough the pubic symphysis were performed initially without contrast andsubsequently after the uncomplicated administration of nonionic contrastmaterial. ?Coronal and sagittal reconstructions were obtained. Auto mAand/or iterative reconstruction were used to reduce radiation dose. FINDINGS: ?Comparison has been made with noncontrast enhanced studies of05/19/2023. Lowerlungs: Chronic changes of pleural thickening with calcified andnoncalcified pleural plaques in the right lateral lower thorax, calcifiedgranuloma in the left lower lung. No pleural effusion or pericardialeffusion. Small hiatal hernia noted. Liver, Gallbladder and Spleen: The gallbladder is unremarkable. Liver is14.5 cm in length and spleen is 11 x 4.9 cm. No focal lesions are seen inthe arterial phase imaging of the liver. Calcified granulomas are seen inthe spleen. Common bile duct is dilated up to 10-11 mm. Pancreatic ductappear of normal size. Papilla appears prominent which could be secondaryto chronic ampullitis. Peritoneum: ?No free air or free fluid. No lymphadenopathy. Pancreas and Adrenals: ?Unremarkable pancreas and adrenal glands. Kidneys and Ureters: Punctate 1 mm faintly visua lized stone noted in theright kidney (6:42) No hydroureter or hydronephrosis. Cortical atrophy andscarring is seen in the lower pole of the right kidney, likely secondary toischemia. Additional smallareas of ischemia seen in both kidneys cortex.Subcentimeter hypodense lesions are seen in the rightand left kidney, toosmall to accurately characterize but likely incidental cysts. Vessels: Diffuse moderate atherosclerosis is noted throughout aorta andiliac arteries with fusiform abdominal aortic aneurysm of 4.8 cm size.Aneurysm begins within 1 cm from the origin of renal arteries andterminates within 1 cm above the bifurcation. More than 60% of the lumen ofthe aneurysm is filled with thrombus. Atherosclerosis noted close to the origins of renal arteries withoutcausing any significant luminal stenosis. Calcifications noted causingstenosis at the origin with poststenotic dilatation of celiac axis. Mildstenosis is noted also at the origin of SMA stricture also noted at theorigin of BETTE. Moderate atherosclerosis with up to 50% stenosis noted at the origin ofleft common iliac artery, in the distal segment of both right and leftcommon iliac arteries. Retroperitoneum: No abnormal fluid or l ymphadenopathy. Bowel: Sleeve gastrectomy changes noted. Constipation. Normal appendix isvisualized. Small bowel gas pattern appears normal. Bladder and Reproductive Organs: ?S/P hysterectomy. Grossly unremarkableunder distended and unopacified urinary bladder. Bones: ?Exaggerated lumbosacral lordosis. No aggressive bone lesions oracute bony abnormalities. Soft tissues: Fat-containing indirect type right inguinal hernia. CONCLUSION:1. 4.8 cm infrarenal abdominal aortic aneurysm with more than 60% of thelumen filled with thrombus. There is no significant interval change in theaneurysm since 05/19/2023 study.2. Cortical ischemic changes at the lower pole of the right kidney and onepossible very faintly visualized punctate stone in the right kidney.3. Dilated common bile duct without any dilatation of the pancreatic duct.If LFTs also abnormal, etiology of dilatation of common duct may be furtherevaluated by either MRCP or ERCP.[facility] [id number] 20:39:27* Test Item Value Reference Range Interpretation Comme [facility] POCT Creatinine (test code = [id number]) 0.7 mg/dL 0.5-1.1 Lab Interpretation (test cod e = 09057-5) Normal [facility] [id number] 17:05:56* Test Item Value Reference Range Interpretation Comme [facility] POCT Creatinine (test code = [id number]) 0.7 mg/dL 0.5-1.1 Lab Interpretation (test cod e = 94287-9) Normal [facility] Consult Notes Date/Time Note Provider Source 2024-06-26 09:48:00 Associated Order(s): CONSULT ADULT PHYSICAL THERAPY Patient agreeable to working with physical therapy. Patient met up in chair. Recommend nursing staff utilize ind to safely assist patient with mobility out of the bed or chair. PHYSICAL THERAPY EVALUATION Consult received, chart reviewed and evaluation complete this date. Patient is referred to PT for evaluation and treatment. Patient is a 64 year old female who presents to hospital for Infrarenal abdominal aortic aneurysm (AAA) without rupture [I71.43] Abdominal aortic aneurysm (AAA) without rupture, unspecified part [I71.40] AAA (abdominal aortic aneurysm) without rupture [I71.40] . Discharge Recommendations: Therapy Needs and Potential: Patient without any skilled PT needs at this time. Challenges to Home Transition: No barriers to D/C home from PT standpoint Equipment recommendations: no device Current Functional Status and/or Treatment: AM-PAC 6 Clicks (Raw Score 0=Dependent, 24=Independent; Low function Raw Score 0= Dependent, 32=Independent): Raw Score - Basic Mobility : 24 T-Scale Score - Basic Mobility : 57.68 Bed Mobility: Rolling: Independent Supine-sit: Independent Sit to supine: Independent Sitting balance Excellent Transfers: sit-stand: Independent Stand pivot transfer: Independent Static/dynamic standing balance: Excellent Sit<>stand from multiple surfaces 0 LOB/instability Dizziness No Ambulation: Assisted patient with ambulation as follows: 300 feet using no device and Independent. Patient presenting with Step-through gait pattern. Instructed patient in directional changes and head movements in all planes during gait trial resulting in 0 instability and 0 LOB. Pt incorporates simulated stepping over obstacles, dual tasking with conversation during gait, bilateral turns and abrupt start stops with 0 gait deficits. Dizziness No Therapeutic exercise: patient educated in Fall prevention, General strengthening, Positioning, and Safety awareness., instructed patient in the following: ankle pumps, long arc quads, seated marching, mini-squats, standing marching, standing hip abduction, standing knee flexion, heel raises, patient/caregiver instructed to perform HEP 3 times per day, 10 repetitions., and patient/caregiver verbalizes understanding of instructions. PT issues patient therex handout with instructions, pictures and exercise prescription Functional Outcome Measures: (Values within the past 12 hours) Tinetti Gait Score- # / 12 Initiation of gait: No hesitancy Step length: On both sides, swing foot passes stance foot Foot clearance: Both feet completely clear floor Step Symmetry: Step lengths equal Step continuity: Steps appear continuous Path: Straight without AD Trunk: No sway, no flexion, no use of arms, no use of AD Walking: Heels almost touching Tinetti Gait Score: 12 Tinetti Gait Score Interpretation: >= 7 - Low risk for falls After session, patient up in chair. Call button provided. RN notified of pt performance, tolerance of session, and PT recommendations for safe mobility. PLAN OF CARE: PT signs off. See below for complete details. Admit Date: 06/24/2024 Hospital Diagnosis:Infrarenal abdominal aortic aneurysm (AAA) without rupture [I71.43] Abdominal aortic aneurysm (AAA) without rupture, unspecified part [I71.40] AAA (abdominal aortic aneurysm) without rupture [I71.40] PT Diagnosis: Weakness and Pain Weight Bearing Precaution: NA General Precautions: PPE used:Gloves, General, Fall, Lines/Tubes,IV LUE Bracing/Cast present or required:N/A PMH: Past Medical History: Diagnosis Date Abnormal uterine bleeding had hysterectomy Allergic rhinitis Aneurysm pt states she has it by her heart Anxiety Bilateral inguinal hernia Calculus of kidney Calculus of ureter Coronary artery disease Diabetes mellitus Hypertension Menstrual disorder Postmenopausal atrophic vaginitis 11/04/2015 Stroke Superficial thrombophlebitis Tobacco abuse 01/24/2017 Transfusion history Urinary incontinence PSH: Past Surgical History: Procedure Laterality Date SECTION 10/1975; 08/1977 EXTRACORPOREAL SHOCKWAVE LITHOTRIPSY 08/26/06 right OPEN PYELOLITHOTOMY right REMOVAL OF KIDNEY STONE 03/2007 SALPINGECTOMY VAGINAL HYSTERECTOMY PRIOR LIVING SITUATION: lives with their family and in a house, Able to negotiate: Yes DME: No device Prior level of Mobility: community ambulation, house hold ambulation Suspected ischemic or hemorraghic stroke:No Subjective: patient reports "I'm ready to get out of here" Patient/Family Goals: "get home soon, be able to help clean a house here and there" Patient/Family verbalizes understanding of condition: Yes PAIN: -Pain Description: dull -Pain Location: abdomen -Pain rating before treatment: 0, After treatment: 1 -Pain Management: Decreased movement aides in some pain reduction COMMUNICATION Primary Language: Slovak Able to Verbalize needs: Yes Vision:good; no issues reported Hearing:good; no issues reported ORIENTATION/COGNITION: Oriented to: person, place, date/time, and situation Awake: Yes Alert: Yes Dizzy: No Follows Commands: Yes 1-Step Yes Multi-Step Yes Inconsistent: No NEUROLOGICAL Light Touch: within functional limits bilateral LE, Heel to chong: wfl Tone: wfl BALANCE: Sitting: Static: Good Dynamic: Good Standing: Static: Good Dynamic: Good RANGE OF MOTION: within functional limits bilateral LE, STRENGTH: 4/5 (Good), bilateral LE ENDURANCE: Good, Room air SKIN INTEGRITY: intact, No erythema, edema near IV site, see nursing notes for details PROBLEM LIST: Decreased strength, Decreased endurance, and Pain ASSESSMENT: Patient is a 64 year old female seen secondary to the above listed diagnosis. No further inpatient PT needs identified at this time. Rehabilitation Potential: NA as no further therapy needs Goals: The following goals are to maximize independence and safety with functional mobility to eventually return to prior living situation and prior functional status. Defer as no PT needs. Treatment Plan: Discharge from PT , Therapeutic exercise, Equipment needs assessment, and Safety education, patient/caregiver education PATIENT EDUCATION: Patient provided with preferred teaching of verbal information, written information, and demonstration on role of PT, plan of care, . Shows readiness to learn. Verbal instruction, Written material, and Demonstration teaching provided. Individual is able to read and verbalizes understanding of teaching provided and accurately returns demonstration of skill. Total Time Tx Codes in Minutes: 10 min Total Treatment Time in Minutes: 28 min Clifford Krishna PT, DPT Rehabilitation Services CUTTER Clifford Krishna PT [facility] - Health History and Physical Notes Date/Time Note Provider Source 2024-06-24 06:07:30 Vascular Surgery H&P Update 06/24/2024 Greta Stokes is a 64 year old female patient who presents for EVAR. The patient was seen and examined in day surgery. Since last being seen in clinic, the patient has been doing well with no interval health changes. Properly NPO. Signed consent is located inside the chart. Risks, benefits, and alternatives to treatment were discussed with the patient who would like to proceed with surgery. Please see clinic note below for further details. Chel Hunter MD PGY2, Vascular Surgery 06/24/2024 Associated attestation - Bj Philippe MD - 06/24/2024 6:59 AM CDT I personally examined the patient on 06/24/2024 and agree with Chel Hunter MD resident note as written . I actively participated in the decision-making process. Please see the resident's note for additional details. Bj Philippe MD, VI, VS Vascular Surgery PGY18 Source Note - Bj Philippe MD - 06/09/2024 3:00 PM CDT Vascular Surgery Clinic Note Date of Service: 06/09/2024 HISTORY OF PRESENT ILLNESS: Greta Stokes is a 63 year old female presenting to clinic for follow-up. She has a history of infrarenal abdominal aortic aneurysm, CTA 05/16 measuring 4.8 cm with 60% thrombotic occlusion. She also has a history of carotid disease, last duplex 06/15 significant for mild bilateral disease of ICA. No focal neurological deficits over the last year. Denies claudication. PAST MEDICAL HISTORY: Past Medical History: Diagnosis Date Abnormal uterine bleeding had hysterectomy Allergic rhinitis Aneurysm pt states she has it by her heart Anxiety Bilateral inguinal hernia Calculus of kidney Calculus of ureter Coronary artery disease Diabetes mellitus Hypertension Menstrual disorder Postmenopausal atrophic vaginitis 11/04/2015 Stroke Superficial thrombophlebitis Tobacco abuse 01/24/2017 Transfusion history Urinary incontinence Past Surgical History: Procedure Laterality Date SECTION 10/1975; 08/1977 EXTRACORPOREAL SHOCKWAVE LITHOTRIPSY 08/26/06 right OPEN PYELOLITHOTOMY right REMOVAL OF KIDNEY STONE 03/2007 SALPINGECTOMY VAGINAL HYSTERECTOMY Medications: Home Medications: Current Outpatient Medications on File Prior to Visit Medication Sig Dispense Refill atorvastatin 80 mg tablet TAKE ONE (1) TABLET BY MOUTH AT BEDTIME. 90 tablet 2 ISOSORBIDE MONONITRATE 30 mg 24 hr tablet Take 1 tablet by mouth twice daily 180 tablet 0 empagliflozin 10 mg tablet Take 1 tablet by mouth in the morning. 30 tablet 3 divalproex 250 mg delayed release tablet Take 1 tablet by mouth every 12 (twelve) hours. ipratropium-albuteroL 0.5 mg-3 mg(2.5 mg base)/3 mL nebulizer solution Inhale 3 mL every 6 (six) hours as needed for Wheezing. ranolazine 500 mg 12 hr tablet Take 1 tablet by mouth in the morning and 1 tablet in the evening. 180 tablet 2 metoprolol succinate XL 100 mg 24 hr tablet Take 1 tablet by mouth in the morning and 1 tablet in the evening. 180 tablet 3 nitroglycerin 0.[address] 1 tablet under the tongue every 5 (five) minutes as needed for Chest pain. 30 tablet 1 mupirocin 2 % ointment Apply to area(s) 3 (three) times daily. 22 g 1 buPROPion SR 150 mg SR tablet Take 1 tablet by mouth in the morning. albuterol 90 mcg/actuation inhaler Inhale 2 Puffs every 6 (six) hours as needed for Wheezing or Shortness of Breath. 8.5 g 11 tiotropium 18 mcg inhalation Inhale 1 capsule daily. 30 capsule 11 docusate 100 mg capsule Take 1 capsule by mouth in the morning. HYDROcodone-acetaminophen 10-325 mg tablet Take 1 tablet by mouth every 6 (six) hours as needed (atypcial chest pain). 35 tablet 0 aspirin 81 mg chewable tablet Take 1 tablet by mouth in the morning. ALPRAZolam (XANAX) 2 mg tablet Take 2 mg by mouth at bedtime as needed for Sleep. No current facility-administered medications on file prior to visit. Social History Socioeconomic History Marital status: Number of children: 2 Occupational History Occupation: none Tobacco Use Smoking status: Every Day Current packs/day: 0.25 Average packs/day: 0.3 packs/day for 30.0 years (7.5 ttl pk-yrs) Types: Cigarettes Smokeless tobacco: Never Tobacco comments: About 1 cigg a day Vaping Use Vaping status: Never Used Substance and Sexual Activity Alcohol use: No Alcohol/week: 0.0 standard drinks of alcohol Drug use: No Sexual activity: Never Other Topics Concern Blood Transfusions Yes Social History Narrative No domestic violence or abuse Family History Problem Relation Age of Onset Cancer Mother Heart Father Arthritis Sister Cancer Sister Hypertension Sister Heart Brother Arthritis Maternal Aunt Diabetes Son Heart Brother Asthma NoFHx defects NoFHx Breast Cancer NoFHx Colon Cancer NoFHx Ovarian Cancer NoFHx Uterine Cancer NoFHx Depression NoFHx Genetic NoFHx High cholesterol NoFHx Mental retardation NoFHx Neurological NoFHx Osteoporosis NoFHx Psychiatry NoFHx Other - see comments NoFHx Allergies: Allergies Allergen Reactions Definity [Perflutren Lipid Microspheres] Other - See comments Severe pain at base of head and neck pain. Sulfa (Sulfonamide Antibiotics) Anaphylaxis and Rash Make sure patient is not allergic to Contrast (Iodine): No Physical Exam: BP 115/61 | Pulse 59 | Temp 36.4 ?C (97.5 ?F) | Resp 20 | Ht 5' 2" (1.575 m) | Wt 143 lb (64.9 kg) | LMP 08/24/1993 (Approximate) | SpO2 97% | BMI 26.16 kg/m? No acute distress. Alert oriented and cooperative Breathing comfortably on room air. Abdomen is soft nondistended. No rebound no guarding Palpable PT and DP pulses bilaterally. Diagnosis: Greta Stokes is a 63 year old presenting with infrarenal AAA measuring 4.8-5.1 cm. Given the size of her AAA, we are recommending EVAR. Assessment/Plan - Will plan for EVAR in [place] Seen and discussed with Dr. Jose Martin Lee MS3 I personally examined the patient on 06/09/2024 and have verified Iraj Lee medical student documentation and/or findings, including the history, physical exam, and medical decision making. Additionally, I have personally performed or re-performed the physical exam and medical decision making activities of this patient's evaluation and management service. Patient's postprandial abdominal pain symptoms have improved. The repeat CTA was reviewed in detail. There are cross-sections of the infrarenal abdominal aortic aneurysm where the diameter exceeds 5 cm now. Had a discussion with the patient about options for management. Will schedule for endovascular abdominal aortic aneurysm repair in [place]. Bj Philippe MD, RPVI, FSVS Vascular Surgery PGY18 T [facility]
--- NOTE | 2024-10-02 13:38 | RAD REPORT ---
EXAMINATION: TWO VIEW CHEST XR CLINICAL INDICATION: COUGH TECHNIQUE: 2 views of the chest was performed. COMPARISON: 12/22/2021 FINDINGS: Extensive bilateral airspace consolidation is present likely representing pneumonia. Small right pleu ral effusion. The heart is mildly enlarged in size. No displaced fractures evident. Sternotomy wires noted. IMPRESSION: Extensive bilateral pneumonia pattern.
[2024-10-02 13:42] LABS: Absolute Lymphocytes (CBC) 0.3 K/uL (0.7-4.9); Absolute Monocytes 0.3 K/uL (0.1-1.3); Absolute Neutrophil 4.2 K/uL (1.8-8.0); Hematocrit 41.1 % (36.0-45.0); Lymphocytes % 6.3 % (15.3-44.8); MCH 30.6 pg (27.0-35.0); MCHC 34.2 g/dL (32.0-36.0); MCV 89.5 fL (80-100); MPV 9.3 fL (7.6-11.3); Monocytes % 5.4 % (3.3-12.3); Neutrophils % 88.3 % (41.7-73.7); Platelets 161 thou/uL (152-406); RBC Red Blood Cell Count 4.58 M/uL (3.86-4.86); Red Cell Distribution Width 14.6 % (12.1-15.2)
[2024-10-02] MEDS ORDERED: CEFTRIAXONE 1000 MG/VIAL ONE (13:50)
[2024-10-02] MEDS ORDERED: AZITHROMYCIN 500 MG INJ IVPB ONE (13:51)
[2024-10-02] MEDS ORDERED: METHYLPREDNISOLONE 125 MG INJ ONE (13:51)
[2024-10-02] MEDS ORDERED: LEVALBUTEROL 1.25 MG/3 ML NEB ONE (13:51)
[2024-10-02] MEDS ORDERED: IPRATROPIUM BROM 0.5MG/2.5ML ONE (13:51)
[2024-10-02] MEDS ORDERED: NA CHLORIDE 0.9% 250 ML ONE (13:52)
[2024-10-02 14:01] LABS: PT Prothrombin Time 13.6 SECONDS (9.4-12.5); PTT, Activated Partial Thromb 33.1 SECONDS (24.3-36.9); Protime INR 1.3; SARS-CoV-2 Antigen CONTROL BLUE LINE VIS/BG OK; SARS-CoV-2 Antigen Rapid Res Negative (Negative)
[2024-10-02 14:13] LABS: Albumin 1.9 g/dL (3.4-5.0); Albumin/Globulin Ratio 0.3 (1.1-1.8); Bilirubin Total 1.2 mg/dL (0.2-1.0); Globulin 5.8 g/dL (2.3-3.5); Protein, Total 7.7 g/dL (6.4-8.2)
[2024-10-02] MEDS ORDERED: OSELTAMIVIR 75 MG CAP PO ONE (14:20)
[2024-10-02] MEDS ORDERED: MAGNESIUM SULFATE 1 gm IVPB 1 GM/100 ML BAG IV ONE (14:20)
--- NOTE | 2024-10-02 14:28 | EDPHYS ---
Physician Documentation [facility] Name: Greta Crespo Age: 64 yrs Sex: Female : 1960 Arrival Date: 10/02/2024 Time: 12:46 Bed 4 Private MD: ED Physician Neto Garcia HPI: 10/02 13:28 This 64 yrs old Female presents to ER via Wheelchair with complaints of Weakness, Cough.rn 13:28 The patient or guardian reports cough, flu symptoms. Onset: The symptoms/episode rn began/occurred 1 week(s) ago. Severity of symptoms: At their worst the symptoms were moderate, in the emergency department the symptoms are unchanged. Modifying factors: The symptoms are alleviated by nothing, the symptoms are aggravated by nothing. It is unknown whether or not the patient has had similar symptoms in the past. Patient reports fever, cough, shortness of breath that is worsening over the last week. Patient has COPD. Family reports multiple family members sick with upper respiratory or flulike illness recently. No hemoptysis.. Historical: - Allergies: 12:59 Sulfa (Sulfonamide Antibiotics); ss - PMHx: 12:59 Abdominal aneurysm; COPD; ss - PSHx: 12:59 Quadriple bypass; ss - Family history:: not pertinent. - Hospitalizations: : No recent hospitalization is reported. ROS: 13:28 Constitutional: Negative for fever, chills, and weight loss, Eyes: Negative for injury, rn pain, redness, and discharge, Respiratory: Positive for cough and shortness of breath Abdomen/GI: Negative for abdominal pain, nausea, vomiting, diarrhea, and constipation, MS/Extremity: Negative for injury and deformity, Skin: Negative for injury, rash, and discoloration, Neuro: Positive for generalized weakness and malaise Exam: 13:28 Constitutional: This is a well developed, well nourished patient who is awake, alert, rn mild to moderate tachypnea Head/Face: Normocephalic, atraumatic. ENT: Dry mucous membranes, no stridor Cardiovascular: Tachycardic, regular. Respiratory: Mild to moderate tachypnea, bilateral crackles Abdomen/GI: Soft, nontender MS/ Extremity: Pulses equal, no cyanosis. Neuro: Awake and alert, GCS 15 14:47 ECG was reviewed by the Attending Physician. rn Vital Signs: 12:56 BP 133 / 75; Pulse 108; Resp 21; Temp 98(O); Pulse Ox 84% on R/A; ss 13:00 Weight 63.5 kg; Height 5 ft. 2 in. ; ss 14:18 BP 133 / 72; Pulse 119; Resp 25; Pulse Ox 92% on 4 lpm NC; iw 13:00 Body Mass Index 25.61 (63.50 kg, 157.48 cm) MDM: 12:50 Medical Screening Exam initiated rn 14:24 Differential Diagnosis: Influenza Upper Respiratory Infection Viral Syndrome Pneumonia rn Other copd exacerbation. Data reviewed: vital signs, nurses notes, lab test result(s), radiologic studies, plain films, and as a result, I will admit patient. Consideration of Admission/Observation Patient was admitted/placed on observation. Escalation of care including admission/observation considered. Care significantly affected by the following chronic conditions: Chronic Obstructive Pulmonary Disease. Counseling: I had a detailed discussion with the patient and/or guardian regarding the historical points, exam findings, and any diagnostic results supporting the discharge/admit diagnosis, lab results, radiology results, the need for further work-up and treatment in the hospital. ED course: Patient with flu and pneumonia, elevated lactic acid of 2.5, COPD exacerbation. Will place on BiPAP as breathing treatments only showed mild improvement. Still moderate tachypnea with crackles everywhere and oxygen requirement. Admitted to hospitalist service.. 10/02 13:01 Order name: Blood Culture Adult (2) rn 10/02 13:01 Order name: CBC with Diff rn 10/02 13:01 Order name: CMP; Complete Time: 14:14 rn 10/02 13:01 Order name: Lactate w/ 2H reflex if indic.; Complete Time: 14:15 rn 10/02 13:01 Order name: Protime (+inr); Complete Time: 14:14 rn 10/02 13:01 Order name: Ptt, Activated; Complete Time: 14:14 rn 10/02 13:01 Order name: BNP; Complete Time: 14:14 rn 10/02 13:01 Order name: SARS-COV-2 Antigen Rapid; Complete Time: 14:14 rn 10/02 13:01 Order name: Flu; Complete Time: 14:14 rn 10/02 14:17 Order name: Ghost Lactate-NO COLLECT Timer EDMS 10/02 15:24 Order name: Urinalysis w/ reflexes EDMS 10/02 15:24 Order name: Basic Metabolic Panel EDMS 10/02 15:24 Order name: Basic Metabolic Panel EDMS 10/02 15:24 Order name: Basic Metabolic Panel EDMS 10/02 15:24 Order name: Basic Metabolic Panel EDMS 10/02 15:24 Order name: Basic Metabolic Panel EDMS 10/02 15:24 Order name: Basic Metabolic Panel EDMS 10/02 15:24 Order name: Basic Metabolic Panel EDMS 10/02 15:24 Order name: Basic Metabolic Panel EDMS 10/02 15:24 Order name: CBC with Automated Diff EDMS 10/02 15:24 Order name: CBC with Automated Diff EDMS 10/02 15:24 Order name: CBC with Automated Diff EDMS 10/02 15:24 Order name: CBC with Automated Diff EDMS 10/02 15:24 Order name: CBC with Automated Diff EDMS 10/02 15:24 Order name: CBC with Automated Diff EDMS 10/02 15:24 Order name: CBC with Automated Diff EDMS 10/02 15:24 Order name: CBC with Automated Diff EDMS 10/02 15:24 Order name: Magnesium EDMS 10/02 15:24 Order name: Magnesium EDMS 10/02 15:24 Order name: Magnesium EDMS 10/02 15:24 Order name: Magnesium EDMS 10/02 15:24 Order name: Magnesium EDMS 10/02 15:24 Order name: Magnesium EDMS 10/02 15:24 Order name: Magnesium EDMS 10/02 15:24 Order name: Magnesium EDMS 10/02 15:24 Order name: Phosphorus EDMS 10/02 15:24 Order name: Phosphorus EDMS 10/02 15:24 Order name: Phosphorus EDMS 10/02 15:24 Order name: Phosphorus EDMS 10/02 15:24 Order name: Phosphorus EDMS 10/02 15:24 Order name: Phosphorus EDMS 10/02 15:24 Order name: Phosphorus EDMS 10/02 15:24 Order name: Phosphorus EDMS 10/02 15:54 Order name: CBC Smear Scan EDMS 10/02 17:04 Order name: Lactate Sepsis 2 HR Follow-up EDMS 10/02 12:51 Order name: XRAY Chest Pa And Lat (2 Views); Complete Time: 13:40 rn 10/02 14:16 Order name: BIPAP rn 10/02 13:01 Order name: EKG; Complete Time: 13:02 rn 10/02 15:24 Order name: CONS Physician Consult EDMS 10/02 13:01 Order name: Accucheck; Complete Time: 14:29 rn 10/02 13:01 Order name: Cardiac monitoring; Complete Time: 14:02 rn 10/02 13:01 Order name: EKG - Nurse/Tech; Complete Time: 14:29 rn 10/02 13:01 Order name: IV Saline Lock - Large Bore; Complete Time: 13:30 rn 10/02 13:01 Order name: Labs collected and sent; Complete Time: 13:30 rn 10/02 13:01 Order name: O2 Per Protocol; Complete Time: 13:30 rn 10/02 13:01 Order name: O2 Sat Monitoring; Complete Time: 13:30 rn 10/02 13:01 Order name: Vital Signs; Complete Time: 13:33 rn EC:47 Rate is 108 beats/min. Rhythm is regular. QRS [place] is Normal. IA interval is normal. rn QRS interval is normal. QT interval is normal. No Q waves. T waves are Normal. No ST changes noted. Clinical impression: Sinus tachycardia. Interpreted by me. Reviewed by me. Administered Medications: 13:59 Drug: MethylPrednisoLONE IVP 125 mg IVP once Route: IVP; Site: left forearm; iw 14:30 Follow up: Response: No adverse reaction iw 14:02 Drug: Levalbuterol Inhalation 1.25 mg Inhalation once Route: Inhalation; iw 14:02 Drug: Levalbuterol Inhalation 1.25 mg Inhalation once Route: Inhalation; iw 14:02 Drug: Ipratropium Inhalation Aerosol 0.5 mg Inhalation once Route: Inhalation; iw 14:26 Drug: Rocephin IV 1 grams IV at calculated rate once; Given slow IV push per pharmacy iw instructions Route: IV; Rate: calculated rate; Site: right wrist; 14:30 Follow up: IV Status: Completed infusion iw 14:26 Drug: Oseltamivir PO 75 mg PO once Route: PO; iw 15:30 Follow up: Response: No adverse reaction iw 14:26 Drug: Magnesium Sulfate IVPB 1 grams IVPB once over 1 hrs Route: IVPB; Infused Over: 1 iw hrs; Site: left forearm; 15:00 Follow up: IV Status: Completed infusion iw 14:29 Drug: Zithromax IVPB 500 mg IVPB once over 1 hrs; mix in 250 mL NS Route: IVPB; Infused iw Over: 1 hrs; Site: right wrist; 15:35 Follow up: IV Status: Completed infusion iw Disposition Summary: 10/02/24 14:28 Hospitalization Ordered Notes: Hospitalization Status: Inpatient Admission rn Provider: Twan Nichols rn Condition: Stable rn Problem: new rn Symptoms: have improved rn Bed/Room Type: Standard rn Location: Telemetry/MedSurg (Inpatient)(10/02/24 15:54) eb Room Assignment: 201(10/02/24 15:54) eb Diagnosis - Pneumonia, unspecified organism rn - Influenza due to identified novel influenza A virus with other respiratory rn manifestations - COPD/ 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 Total time: 35 rn minutes Signatures: Dispatcher [employer] Melania Alexander RN RN iw Neto Garcia MD MD rn Blanchard, Shelby, RN RN Miriam Whitaker Corrections: (The following items were deleted from the chart) 13:23 13:01 Chest Single View+RAD.RAD.[email or web address] ordered. EDMS EDMS 15:54 14:28 Intensive Care Unit rn eb 15:54 14:28 rn eb
--- NOTE | 2024-10-02 14:28 | ER ---
Nurse's Notes [facility] Name: Greta Crespo Age: 64 yrs Sex: Female : 1960 Arrival Date: 10/02/2024 Time: 12:46 Bed 4 Private MD: Diagnosis: Pneumonia, unspecified organism;Influenza due to identified novel influenza A virus with other respiratory manifestations;COPD/ Chronic obstructive pulmonary disease with (acute) exacerbation Presentation: 10/02 12:56 Chief complaint: Patient states: Cough, chest congestion, fever that has been ongoing x ss 1 week after being around family. Coronavirus screen: Client denies travel out of the [place] in the last 14 days. Ebola Screen: Patient denies exposure to infectious person. Patient denies travel to an Ebola-affected area in the 21 days before illness onset. Initial Sepsis Screen: Does the patient meet any 2 criteria? No. Patient's initial sepsis screen is negative. Does the patient have a suspected source of infection? No. Patient's initial sepsis screen is negative. Risk Assessment: Do you want to hurt yourself or someone else? Patient reports no desire to harm self or others. Onset of symptoms was September 25, 2024. 12:56 Method Of Arrival: Wheelchair ss 12:56 Acuity: ALEJANDRA 2 ss Historical: - Allergies: 12:59 Sulfa (Sulfonamide Antibiotics); ss - PMHx: 12:59 Abdominal aneurysm; COPD; ss - PSHx: 12:59 Quadriple bypass; ss - Family history:: not pertinent. - Hospitalizations: : No recent hospitalization is reported. Screenin:27 [facility] ED Fall Risk Assessment (Adult) History of falling in the last 3 months, iw including since admission No falls in past 3 months (0 pts) Confusion or Disorientation No (0 pts) Intoxicated or Sedated No (0 pts) Impaired Gait No (0 pts) Mobility Assist Device Used No (0 pt) Altered Elimination No (0 pt) Score/Fall Risk Level 0 - 2 = Low Risk Oriented to surroundings, Maintained a safe environment. Abuse screen: Denies threats or abuse. Nutritional screening: No deficits noted. Tuberculosis screening: No symptoms or risk factors identified. Assessment: 13:40 General: Appears uncomfortable, ill, Behavior is calm, cooperative. General: Reports iw fever for feeling ill for fatigue for 2-3 days. Pain: Denies pain. Neuro: Level of Consciousness is awake, alert, obeys commands, Oriented to person, place, time, Moves all extremities. Cardiovascular: Patient's skin is warm and dry. Respiratory: Reports shortness of breath at rest on exertion cough that is productive, Respiratory effort is even, labored, Respiratory pattern is regular, tachypnea. GI: Abdomen is non-distended. Derm: Skin is fragile, is thin, Skin is pink, warm \T\ dry. Musculoskeletal: Range of motion: intact in all extremities. 14:26 Reassessment: pt appears more labored, requesting to be placed on bipap. iw 14:51 Reassessment: pt unable to tolerate Bipap, mask removed by pt, placed on 5 L NC, SpO2 = iw 92%. 16:00 Reassessment: Patient appears in no apparent distress at this time. Patient and/or iw family updated on plan of care and expected duration. Pain level reassessed. pt placed on 5 L NC Patient states feeling better. Patient states symptoms have improved. Vital Signs: 12:56 BP 133 / 75; Pulse 108; Resp 21; Temp 98(O); Pulse Ox 84% on R/A; ss 13:00 Weight 63.5 kg; Height 5 ft. 2 in. ; ss 14:18 BP 133 / 72; Pulse 119; Resp 25; Pulse Ox 92% on 4 lpm NC; iw 13:00 Body Mass Index 25.61 (63.50 kg, 157.48 cm) ED Course: 12:49 Patient arrived in ED. ra3 12:50 Neto Garcia MD is Attending Physician. rn 12:59 Triage completed. ss 12:59 Arm band placed on right wrist. ss 13:11 Melania Salmeron, [place] is Primary Nurse. iw 13:15 Initial lab(s) drawn, by or, sent to lab. Inserted saline lock: 20 gauge in right iw wrist, using aseptic technique. Blood collected. Flushed with 10 mL NS. 13:24 XRAY Chest Pa And Lat (2 Views) In Process Unspecified. EDMS 13:56 Second set of blood cultures drawn by me. Inserted saline lock: 20 gauge in left iw forearm, using aseptic technique. Blood collected. Flushed with 10 mL NS. 14:25 Twan Nichols is Hospitalizing Provider. rn 14:28 Patient has correct armband on for positive identification. Bed in low position. Call iw light in reach. Side rails up X2. Adult w/ patient. Provided Education on: lab results . Client placed on continuous cardiac and pulse oximetry monitoring. NIBP monitoring applied. bundle clerk on. 14:53 No provider procedures requiring assistance completed. iw 17:10 Patient admitted, IV remains in place. iw Administered Medications: 13:59 Drug: MethylPrednisoLONE IVP 125 mg IVP once Route: IVP; Site: left forearm; iw 14:30 Follow up: Response: No adverse reaction iw 14:02 Drug: Levalbuterol Inhalation 1.25 mg Inhalation once Route: Inhalation; iw 14:02 Drug: Levalbuterol Inhalation 1.25 mg Inhalation once Route: Inhalation; iw 14:02 Drug: Ipratropium Inhalation Aerosol 0.5 mg Inhalation once Route: Inhalation; iw 14:26 Drug: Rocephin IV 1 grams IV at calculated rate once; Given slow IV push per pharmacy iw instructions Route: IV; Rate: calculated rate; Site: right wrist; 14:30 Follow up: IV Status: Completed infusion iw 14:26 Drug: Oseltamivir PO 75 mg PO once Route: PO; iw 15:30 Follow up: Response: No adverse reaction iw 14:26 Drug: Magnesium Sulfate IVPB 1 grams IVPB once over 1 hrs Route: IVPB; Infused Over: 1 iw hrs; Site: left forearm; 15:00 Follow up: IV Status: Completed infusion iw 14:29 Drug: Zithromax IVPB 500 mg IVPB once over 1 hrs; mix in 250 mL NS Route: IVPB; Infused iw Over: 1 hrs; Site: right wrist; 15:35 Follow up: IV Status: Completed infusion iw Medication: 14:53 VIS not applicable for this client. iw Outcome: 14:28 Decision to Hospitalize by Provider. rn 17:10 Admitted to Med/surg accompanied by tech, via stretcher, with oxygen, with chart, iw 17:10 Condition: good 17:10 Discharge instructions given to patient, family, Instructed on the need for admit, Demonstrated understanding of instructions, 17:11 Patient left the ED. iw Signatures: Dispatcher [employer] EDMS Melania Salmeron RN RN iw Garcia, Neto, MD MD rn [place], [place], RN RN ss Santos, Alison ra3
--- NOTE | 2024-10-02 14:42 | P.HP ---
Certification for Inpatient Patient admitted to: Inpatient With expected LOS: >2 Midnights Practitioner: I am a practitioner with admitting privileges, knowledge of patient current condition, hospital course, and medical plan of care. Services: Services provided to patient in accordance with Admission requirements found in Title 42 Section 412.3 of the Code of Federal Regulations Patient History Date of Service: 10/02/24 Reason for admission: Acute hypoxic respiratory failure 2/2 PNA, FluA, COPD exacerbation History of Present Illness: Greta Crespo is a 64 year old female with Pmhx abdominal aneurysm, COPD, CAD status post quadruple bypass who presents to the ED with complaints of fever, productive cough, and shortness of breath for 1 week. She reports her family me mbers sick with upper respiratory and flulike symptoms. On examination, Greta was to short of breath to speak, family spoke for her. Reports Greta has been sleeping all week, reports COPD without oxygen but has not had an exacerbation for years, rhonchi to right lung space, on 4 LNC. She was unable to tolerate the Bipap in the ED. Laboratory evaluation significant for left shift neutrophils 88, serum glucose 125, lactic acid 2.5, potassium 3.0, total bili 1.2, BNP 2532, Flu A. CXR Reports "extensive bilateral pneumonia pattern, small right pleural effusion." Greta will be admitted to hospitalist service for further evaluation and treatment of acute hypoxic respiratory failure secondary to COPD exacerbation associated with pneumonia and flu A. Allergies Sulfa (Sulfonamide Antibiotics) [Sulfa(Sulfonamide Antibiotics)] Allergy (Mild, Verified 09/02/12 09:35) Itching/Hives/Rash Home Medications: Albuterol Sulfate [Ventolin Hfa] 18 gm IH PRN PRN 12/26/14 Aspirin Chewable [Aspirin Chewable*] 81 mg PO DAILY 12/26/14 Metoprolol Tartrate [Lopressor*] 50 mg PO BID #60 tab 12/28/14 Simvastatin [Zocor*] 40 mg PO BEDTIME #30 tablet 12/28/14 - Past Medical/Surgical History Diabetic: No -: COPD -: CAD -: Abdominal aneurysm -: HYSTERECTOMY -: KIDNEY STONES REMOVED -: TUBAL -: INCISION HERNIA SX -: GASTRIC SLEEVE -: abdominal aneurysm status post stent placed (Jun 2024) -: 4 vessel CABG - Family History Father -: Heart disease, Cancer Notes: esophegeal cancer Mother -: Cancer Brother -: Heart disease - Social History Smoking Status: Former smoker Alcohol use: No CD- Drugs: Yes Caffeine use: Yes Review of Systems Other: per HPI Physical Examination - Physical Exam General: Alert, Oriented x3, Mild distress HEENT: Atraumatic, Normocephalic Neck: Supple, 2+ carotid pulse no bruit Respiratory: Normal air movement, Rhonchi/gurgles (right lung space) Cardiovascular: No edema, Normal pulses, Irregular heart rate/rhythm (mild tachycardia) Capillary refill: <2 Seconds Gastrointestinal: Normal bowel sounds, Soft and benign Musculoskeletal: No clubbing Integumentary: No rashes Neurological: Normal speech, Normal tone - Studies Laboratory Data (last 24 hrs) 10/02/24 10/02/24 10/02/24 13:26 13:26 13:26 WBC 4.70 Hgb 14.0 Hct 41.1 Plt Count 161 PT 13.6 H INR 1.30 APTT 33.1 Sodium 134 L Potassium 3.0 L BUN 25 H Creatinine 0.86 Glucose 125 H Total Bilirubin 1.2 H AST 27 ALT 17 Alkaline Phosphatase 69 Microbiology Data (last 24 hrs): 10/02/24 13:26 Nasopharnyx Influenza Type A Antigen Screen - Final 10/02/24 13:26 Nasopharnyx Influenza Type B Antigen Screen - Final Assessment and Plan - Plan Assessment and plan Acute hypoxic respiratory failure secondary to COPD exacerbation associated with bilateral pneumonia and flu A Severe Sepsis secondary to bilateral pneumonia and flu A -Sepsis criteria heart rate 108, respirations 25, flu and pneumonia -Rocephin and Zithromax given in the ED, will continue on the floor -Repeat lactic acid -DuoNebs -Steroids -Tamiflu -gentle IVF as patient has elevated BNP Fluid volume overload -BNP 2500 -monitor IVF Decreased PO intake -nutritional shakes -reported d/t sickness for one week Hypokalemia -K 3.0 -replace PRN -monitor in AM labs Hyperglycemia -Serum glucose 125 -monitor in AM labs Abdominal aneurysm CAD status post quadruple bypass -Stent to aneurysm Jun 2024 -Follow-up outpatient -Continue home medications Substance abuse -chews tobacco -reports marijuana use -Cessation education provided DVT PPx lovenox Full code LOS 2 to 3 days Discharge Plan: Home Plan to discharge in: 72 Hours - Advance Directives Does patient have a Living Will: No Does patient have a Durable POA for Healthcare: No
[2024-10-02] MEDS ORDERED: ACETAMINOPHEN 325 MG TABLET PO PRN (15:15)
[2024-10-02 15:53] LABS: Platelet Estimate ADEQ; White Blood Cell Scan OK (OK)
[2024-10-02 15:54] LABS: Blood Morphology Comment NOT SEEN (NOT SEEN)
[2024-10-02] MEDS: ENOXAPARIN 40 MG/0.4 ML SQ SCH (16:00)
[2024-10-02] MEDS: NA CHLORIDE 0.9% 1,000 ML IV SCH (18:00)
[2024-10-02 18:13] LABS: Specific Gravity > 1.030 (1.005-1.030); Sqamous Epithelial <5 /HPF (None Seen); Urine Bacteria <20 /HPF (<20); Urine Bilirubin NEGATIVE (Negative); Urine Blood 1+ (Negative); Urine Clarity Turbid (Clear); Urine Color Yellow (Yellow); Urine Culture Reflex Order NOT NEEDED; Urine Glucose 4+ (Over) (Negative); Urine Ketones TRACE (Negative); Urine Microscopic Reflex YN ORDER UMIC; Urine Nitrite NEGATIVE (Negative); Urine Protein 1+ (Negative); Urine Urobilinogen Normal (Normal); Urine WBC Clump Rare /HPF (None Seen)
[2024-10-02] MEDS: POTASSIUM 25 MEQ EFFERV TAB PO ONE (21:00)
[2024-10-02] MEDS: ENSURE PLANT-BASED PROTEIN CHOCOLATE 330 ML LIQUID PO SCH (21:00)
[2024-10-02] MEDS: METHYLPREDNISOLONE 40 MG INJ IV SCH (21:00)
[2024-10-03 05:04] LABS: Hemoglobin 13.2 g/dL (12.0-15.0); MCH 31.2 pg (27.0-35.0); MCHC 34.8 g/dL (32.0-36.0); MCV 89.5 fL (80-100); MPV 9.4 fL (7.6-11.3); Platelets 165 thou/uL (152-406); RBC Red Blood Cell Count 4.24 M/uL (3.86-4.86); Red Cell Distribution Width 14.7 % (12.1-15.2)
[2024-10-03 05:16] LABS: Anion Gap 10.6 mEq/L (5.0-15.0); Magnesium 3.3 mg/dL (1.6-2.4); Phosphorus 3.8 mg/dL (2.5-4.9); Potassium 4.6 mEq/L (3.5-5.1)
[2024-10-03] MEDS ORDERED: ALBUTEROL INHALER 200 PUFF/6.7 GM IH PRN (08:22)
[2024-10-03] MEDS: ALBUTEROL 2.5 MG/3 ML NEB SOL NEB SCH (08:25)
[2024-10-03] MEDS: IPRATROPIUM BROM 0.5MG/2.5ML NEB SCH (08:25)
[2024-10-03] MEDS: CEFTRIAXONE 1,000 MG in NA CHLORIDE 0.9% 50 ML IVPB SCH (08:36)
[2024-10-03] MEDS: OSELTAMIVIR 30 MG CAP PO SCH (08:37)
[2024-10-03] MEDS: METOPROLOL TARTRATE 5 MG/5 ML INJ IV STA (08:37)
[2024-10-03] MEDS: AZITHROMYCIN IV 500 MG in NA CHLORIDE 0.9% 250 ML IVPB SCH (08:38)
[2024-10-03] MEDS ORDERED: METOPROLOL TAR 50 MG TAB PO SCH (09:00)
[2024-10-03 09:10] LABS: Atypical Lymphocytes 2 %; Band Neutrophils 16 % (0-1); Blood Morphology Comment NOT SEEN (NOT SEEN); Differential Total Cells Count 100; Eosinophils 1 % (0-3); Lymphocytes 9 % (15-42); Monocytes 7 % (0-10); Platelet Estimate ADEQ; Platelets Clumped FEW; Segmented Neutrophils 65 % (40-80); Toxic Granulation 3+
[2024-10-03] MEDS ORDERED: ALPRAZOLAM 1 MG TABLET PO PRN (11:34)
--- NOTE | 2024-10-03 11:40 | P.PN ---
Date of Service: 10/03/24 Subjective Awake on 4 LNC reports feeling better this morning Home O2 evaluation today ROS 10 point ROS as noted above, otherwise negative Physical Exam General: Alert and Oriented x3, NAD, afebrile HEENT: Atraumatic, Normocephalic Neck: Supple, 2+ carotid pulse no bruit Respiratory: Normal air movement, Rhonchi/gurgles (right lung space), on 4 LNC Cardiovascular: Normal pulses, Irregular heart rate/rhythm (mild tachycardia) Capillary refill: <2 Seconds Gastrointestinal: Normal active bowel sounds, Soft and benign on palpation Musculoskeletal: No clubbing Integumentary: No rashes Neurological: Normal speech, Normal tone Vitals Reviewed Problem list Acute hypoxic respiratory failure secondary to COPD exacerbation associated with bilateral pneumonia and flu A Severe Sepsis secondary to bilateral pneumonia and flu A Fluid volume overload Decreased PO intake Hypokalemia Hypokalemia Hyperglycemia Abdominal aneurysm CAD status post quadruple bypass Substance abuse Assessment and Plan Acute hypoxic respiratory failure secondary to COPD exacerbation associated with bilateral pneumonia and flu A Severe Sepsis secondary to bilateral pneumonia and flu A -Sepsis criteria heart rate 108, respirations 25, flu and pneumonia -Rocephin and Zithromax given in the ED, will continue on the floor -lactic acid cleared -continue DuoNebs -continue Steroids -continue Tamiflu 75 mg BID -gentle IVF as patient has elevated BNP, tolerating Fluid volume overload -BNP 2500 -monitor IVF Decreased PO intake -nutritional shakes -reported d/t sickness for one week Hypokalemia -K 4.6 -replace PRN -monitor in AM labs Hyperglycemia -Serum glucose 121 -monitor in AM labs Abdominal aneurysm CAD status post quadruple bypass -Stent to aneurysm Jun 2024 -Follow-up outpatient -Continue home medications Substance abuse -chews tobacco -reports marijuana use -Cessation education provided DVT PPx lovenox Full code LOS 2 to 3 days Discharge Plan: Home
[2024-10-03] MEDS: ASPIRIN 81 MG CHEWABLE TABLET PO SCH (11:56)
[2024-10-03] MEDS: METOPROLOL TAR 50 MG TAB PO SCH (11:56)
[2024-10-03] MEDS: DIVALPROEX ER 250 MG TAB PO SCH (11:57)
[2024-10-03] MEDS: LEVALBUTEROL 1.25 MG/3 ML NEB NEB SCH (13:38)
[2024-10-03] MEDS: ATORVASTATIN 20 MG TAB PO SCH (21:52)
[2024-10-03] MEDS: OSELTAMIVIR 75 MG CAP PO SCH (21:52)
[2024-10-03] MEDS: IPRATROPIUM BROM 0.5MG/2.5ML ONE (22:16)
[2024-10-03] MEDS: LEVALBUTEROL 1.25 MG/3 ML NEB ONE (22:16)
[2024-10-04 05:27] LABS: Absolute Lymphocytes (CBC) 0.5 K/uL (0.7-4.9); Absolute Monocytes 1.4 K/uL (0.1-1.3); Absolute Neutrophil 5.8 K/uL (1.8-8.0); Basophils % 0.1 % (0-1.3); Lymphocytes % 6.5 % (15.3-44.8); MCHC 33.4 g/dL (32.0-36.0); MCV 89.9 fL (80-100); MPV 8.6 fL (7.6-11.3); Monocytes % 17.9 % (3.3-12.3); Neutrophils % 75.5 % (41.7-73.7); Nucleated Red Blood Cells % 0.2 % (0-0); Platelets 207 thou/uL (152-406); Red Cell Distribution Width 14.6 % (12.1-15.2)
[2024-10-04 05:56] LABS: Anion Gap 9.5 mEq/L (5.0-15.0); Magnesium 2.7 mg/dL (1.6-2.4); Phosphorus 3.3 mg/dL (2.5-4.9); Potassium 3.5 mEq/L (3.5-5.1)
[2024-10-04] MEDS: HOME MED 1 EA UNK (Empagliflozin [Jardiance] 10 MG Tablet) PO SCH (09:00)
[2024-10-04] MEDS ORDERED: DIVALPROEX ER 250 MG TAB PO SCH (09:00)
[2024-10-04 11:12] LABS: Atypical Lymphocytes 5 %; Band Neutrophils 7 % (0-1); Differential Total Cells Count 100; Lymphocytes 8 % (15-42); Metamyelocytes 1 % (0-0); Monocytes 14 % (0-10); Segmented Neutrophils 63 % (40-80)
[2024-10-04 11:13] LABS: Blood Morphology Comment NOT SEEN (NOT SEEN); Myelocytes 2 % (0-0); Platelet Estimate ADEQ; Toxic Granulation 2+
--- NOTE | 2024-10-04 11:33 | P.PN ---
Date of Service: 10/04/24 Subjective Slowly improving No acute events overnight ROS 10 point ROS as noted above, otherwise negative Physical Exam General: Alert and Oriented x3, NAD, afebrile HEENT: Atraumatic, Normocephalic Neck: Supple, 2+ carotid pulse no bruit Respiratory: Normal air movement, Rhonchi/gurgles (right lung space), on 3l Cardiovascular: Normal pulses, Irregular heart rate/rhythm (mild tachycardia) Capillary refill: <2 Seconds Gastrointestinal: Normal active bowel sounds, Soft and benign on palpation Musculoskeletal: No clubbing Integumentary: No rashes Neurological: Normal speech, Normal tone Vitals Reviewed Problem list Acute hypoxic respiratory failure secondary to COPD exacerbation associated with bilateral pneumonia and flu A Severe Sepsis secondary to bilateral pneumonia and flu A Hypokalemia Hyperglycemia History of Abdominal Aortic Aneurysm CAD status post quadruple bypass Substance abuse Plan Acute hypoxic respiratory failure secondary to COPD exacerbation associated with bilateral pneumonia and flu A Severe Sepsis secondary to bilateral pneumonia and flu A -08/27 blood cultures positive, awaiting gram stain -Procal elevated at 6, will switch to vancomycin and DC rocephin/zithromax 10/04 -Follow cultures -continue Steroids -continue Tamiflu 75 mg BID -gentle IVF Decreased PO intake -nutritional shakes -reported d/t sickness for one week Hypokalemia -replace PRN -monitor in AM labs Hyperglycemia -monitor in AM labs Abdominal aneurysm CAD status post quadruple bypass -Stent to aneurysm Jun 2024 -Follow-up outpatient -Continue home medications Substance abuse -chews tobacco -reports marijuana use -Cessation education provided DVT PPx lovenox Full code LOS 2 to 3 days Discharge Plan: Home
[2024-10-04] MEDS: VANCOMYCIN 1.25 GM in NA CHLORIDE 0.9% 250 ML IVPB SCH (11:50)
--- NOTE | 2024-10-04 12:47 | EKG ---
Test Date: 2024-10-02 Test Time: 14:08:44 Tile Designer: BILLY MEASUREMENT RESULTS: Intervals: Rate: 108 MD: 112 QRSD: 92 QT: 336 QTc: 450 [place]: P: 28 MD: 112 QRS: 62 T: 37 INTERPRETIVE STATEMENTS: Sinus tachycardia Possible Left atrial enlargement Borderline ECG Compared to ECG 12/27/2014 06:47:18 Sinus rhythm no longer present Electronically Signed On 10-04-24 12:42:57 CARDIOLOGY ASSOCIATE by Pepito Flores
[2024-10-04] MEDS: Meropenem 1,000 MG in NA CHLORIDE 0.9% 100 ML IV SCH (12:55)
[2024-10-05 06:17] LABS: Absolute Lymphocytes (CBC) 0.4 K/uL (0.7-4.9); Absolute Monocytes 0.6 K/uL (0.1-1.3); Absolute Neutrophil 4.5 K/uL (1.8-8.0); Basophils % 0.2 % (0-1.3); Hematocrit 34.4 % (36.0-45.0); Hemoglobin 11.7 g/dL (12.0-15.0); Lymphocytes % 7.4 % (15.3-44.8); MCH 30.4 pg (27.0-35.0); MCHC 33.9 g/dL (32.0-36.0); MCV 89.7 fL (80-100); Monocytes % 10.8 % (3.3-12.3); Neutrophils % 81.6 % (41.7-73.7); Nucleated Red Blood Cells % 0.3 % (0-0); Platelets 207 thou/uL (152-406); RBC Red Blood Cell Count 3.84 M/uL (3.86-4.86); Red Cell Distribution Width 14.7 % (12.1-15.2)
[2024-10-05 06:30] LABS: Anion Gap 8.2 mEq/L (5.0-15.0); Magnesium 2.4 mg/dL (1.6-2.4); Phosphorus 2.7 mg/dL (2.5-4.9); Potassium 3.2 mEq/L (3.5-5.1)
[2024-10-05] MEDS: POTASSIUM CL SA 10 MEQ TAB PO ONE (08:45)
[2024-10-05 15:07] VITALS: BMI 24.9
--- NOTE | 2024-10-05 15:36 | P.PN ---
Date of Service: 10/05/24 Subjective Slowly improving No acute events overnight ROS 10 point ROS as noted above, otherwise negative Physical Exam General: Alert and Oriented x3, NAD, afebrile HEENT: Atraumatic, Normocephalic Neck: Supple, 2+ carotid pulse no bruit Respiratory: Normal air movement, Rhonchi/gurgles (right lung space), on 3l Cardiovascular: Normal pulses, Irregular heart rate/rhythm (mild tachycardia) Capillary refill: <2 Seconds Gastrointestinal: Normal active bowel sounds, Soft and benign on palpation Musculoskeletal: No clubbing Integumentary: No rashes Neurological: Normal speech, Normal tone Vitals Reviewed Problem list Acute hypoxic respiratory failure secondary to COPD exacerbation associated with bilateral pneumonia and flu A Severe Sepsis secondary to bilateral pneumonia and flu A Hypokalemia Hyperglycemia History of Abdominal Aortic Aneurysm CAD status post quadruple bypass Substance abuse Plan Acute hypoxic respiratory failure secondary to COPD exacerbation associated with bilateral pneumonia and flu A Severe Sepsis secondary to bilateral pneumonia and flu A -1/4 blood cultures positive, gram negative-awaiting final results -Procal elevated at 6, will switch to merrem given gram negative gram stain and 1/4 +cultures -Follow cultures -continue Steroids -continue Tamiflu 75 mg BID -gentle IVF Decreased PO intake -nutritional shakes -reported d/t sickness for one week Hypokalemia -replace PRN -monitor in AM labs Hyperglycemia -monitor in AM labs Abdominal aneurysm CAD status post quadruple bypass -Stent to aneurysm Jun 2024 -Follow-up outpatient -Continue home medications Substance abuse -chews tobacco -reports marijuana use -Cessation education provided DVT PPx lovenox Full code LOS 2 to 3 days Discharge Plan: Home
[2024-10-06 04:58] LABS: Absolute Lymphocytes (CBC) 0.6 K/uL (0.7-4.9); Absolute Monocytes 0.5 K/uL (0.1-1.3); Absolute Neutrophil 4.3 K/uL (1.8-8.0); Basophils % 0.2 % (0-1.3); Hematocrit 37.4 % (36.0-45.0); Hemoglobin 12.4 g/dL (12.0-15.0); Lymphocytes % 11.5 % (15.3-44.8); MCHC 33.1 g/dL (32.0-36.0); MCV 90.4 fL (80-100); MPV 8.8 fL (7.6-11.3); Monocytes % 9.6 % (3.3-12.3); Neutrophils % 78.7 % (41.7-73.7); Platelets 214 thou/uL (152-406); RBC Red Blood Cell Count 4.14 M/uL (3.86-4.86)
[2024-10-06 05:31] LABS: Anion Gap 9.1 mEq/L (5.0-15.0); Phosphorus 2.9 mg/dL (2.5-4.9); Potassium 4.1 mEq/L (3.5-5.1)
[2024-10-06] MEDS: CEFTRIAXONE 1,000 MG in NA CHLORIDE 0.9% 50 ML IVPB SCH (09:28)
--- NOTE | 2024-10-06 10:14 | P.PN ---
Date of Service: 10/06/24 Subjective Slowly improving No acute events overnight blood cultures finalized today Improving ROS 10 point ROS as noted above, otherwise negative Physical Exam General: Alert and Oriented x3, NAD, afebrile HEENT: Atraumatic, Normocephalic Neck: Supple, 2+ carotid pulse no bruit Respiratory: Normal air movement, Rhonchi/gurgles (right lung space), on 3l Cardiovascular: Normal pulses, Irregular heart rate/rhythm (mild tachycardia) Capillary refill: <2 Seconds Gastrointestinal: Normal active bowel sounds, Soft and benign on palpation Musculoskeletal: No clubbing Integumentary: No rashes Neurological: Normal speech, Normal tone Vitals Reviewed Problem list Acute hypoxic respiratory failure secondary to COPD exacerbation associated with bilateral pneumonia and flu A Severe Sepsis secondary to bilateral pneumonia and flu A Hypokalemia Hyperglycemia History of Abdominal Aortic Aneurysm CAD status post quadruple bypass Substance abuse Plan Acute hypoxic respiratory failure secondary to COPD exacerbation associated with bilateral pneumonia and flu A Severe Sepsis secondary to bilateral pneumonia and flu A -3/4 blood cultures positive for haemophilus influenza sensitive to Rocephin -Procal elevated at 6, continue appropriate Mattix with Rocephin -Infectious disease consult -continue Tamiflu 75 mg BID Decreased PO intake -nutritional shakes -reported d/t sickness for one week Hypokalemia -replace PRN -monitor in AM labs Hyperglycemia -monitor in AM labs Abdominal aneurysm CAD status post quadruple bypass -Stent to aneurysm Jun 2024 -Follow-up outpatient -Continue home medications Substance abuse -chews tobacco -reports marijuana use -Cessation education provided DVT PPx lovenox Full code LOS 2 to 3 days Discharge Plan: Home
[2024-10-06] MEDS: CEFTRIAXONE 1,000 MG in NA CHLORIDE 0.9% 50 ML IVPB ONE (16:55)
--- NOTE | 2024-10-06 20:21 | CON ---
History Of Present Illness: This is a 64-year-old female. I was consulted for bacteremia, second to e; H influenza; and flu. The patient is coming in with complaint of flu-like symptoms with significa nt past medical history of abdominal aneurysm, COPD, coronary artery disease with quadruple bypass. At the emergency room, the patient complained about fever, productive cough, and shortness of breath of 1 week. The patient denies any other problems at this time, able to tolerate the antibiotic Rocep hin without any problems. Past Medical History: As per HPI. Social History: Tobacco: Positive. Alcohol: Negative. Family History: Noncontributory. Medications: Rocephin. See MAR for other medications. Allergies: SULFA DRUGS. Review of Systems: Ten-point review was performed. Physical Examination: General: This is a 64-year-old female, lying in bed, not in any acute cardiopulmonary distress. Vital Signs: Temperature 97.5, pulse 73, respirations 16, blood pressure 137/80. HEENT: Unremarkable. Neck: Supple. Lungs: Basal crackles. Heart: S1, S2. Regular. Abdomen: Soft, nontender. Bowel sounds present. Extremities: No edema. Laboratory Data: WBC 5.5, hemoglobin 12.4, platelets 214. Chemistry shows BUN of 19, creatinine 0.5 . Albumin level is 1.9. Micro data shows Haemophilus influenzae, blood culture positive, sensitive to Rocephin. Chest x-ray, done on October 02, shows the patient has extensive bilateral pneumonia pattern. Assessment And Plan: Bilateral pneumonitis secondary to Haemophilus influenzae with bacteremia. Rec ommend to continue antibiotic for 2 weeks as the patient has significant history of chronic obstructi ve pulmonary disease and flu A causing her immune system to significantly compromise. Continue respi ratory hygiene. The patient has unusual response of low white cell count even with bilateral pneumon ia, probably secondary to poor nutritional status versus overall immune disorder, history of tobacco use, and chronic obstructive pulmonary disease. Continue supportive care, and monitor signs of infec tion with WBC and fever trends. NF/MODL Voice ID: [id number] Report ID: [id number]
[2024-10-07 04:20] LABS: Absolute Lymphocytes (CBC) 1.1 K/uL (0.7-4.9); Absolute Monocytes 0.5 K/uL (0.1-1.3); Absolute Neutrophil 3.7 K/uL (1.8-8.0); Basophils % 0.1 % (0-1.3); Eosinophils % 0.7 % (0-4.4); Hematocrit 37.2 % (36.0-45.0); Hemoglobin 12.5 g/dL (12.0-15.0); Lymphocytes % 20.8 % (15.3-44.8); MCH 29.9 pg (27.0-35.0); MCHC 33.6 g/dL (32.0-36.0); MCV 89.2 fL (80-100); Monocytes % 9.2 % (3.3-12.3); Neutrophils % 69.2 % (41.7-73.7); Nucleated Red Blood Cells % 0.1 % (0-0); Platelets 193 thou/uL (152-406); RBC Red Blood Cell Count 4.17 M/uL (3.86-4.86); Red Cell Distribution Width 14.6 % (12.1-15.2)
[2024-10-07 04:47] LABS: Anion Gap 7.6 mEq/L (5.0-15.0); Magnesium 1.8 mg/dL (1.6-2.4); Phosphorus 3.4 mg/dL (2.5-4.9); Potassium 3.6 mEq/L (3.5-5.1)
[2024-10-07] MEDS: MAGNESIUM SULFATE 1 gm IVPB 1 GM/100 ML BAG IV ONE (06:30)
[2024-10-07] MEDS: CEFTRIAXONE 2,000 MG in NA CHLORIDE 0.9% 50 ML IV SCH (09:38)
[2024-10-07] MEDS: POTASSIUM CL SA 10 MEQ TAB PO ONE (09:39)
[2024-10-08] MEDS ORDERED: ONDANSETRON 4 MG/2 ML VIAL IV PRN (05:43)
[2024-10-08 06:09] LABS: Absolute Eosinophils 0.1 K/uL (0-0.5); Absolute Monocytes 0.4 K/uL (0.1-1.3); Absolute Neutrophil 3.6 K/uL (1.8-8.0); Basophils % 0.2 % (0-1.3); Eosinophils % 1.8 % (0-4.4); Hematocrit 40.1 % (36.0-45.0); Hemoglobin 13.5 g/dL (12.0-15.0); Lymphocytes % 19.1 % (15.3-44.8); MCH 30.3 pg (27.0-35.0); MCHC 33.6 g/dL (32.0-36.0); MCV 90.3 fL (80-100); MPV 8.9 fL (7.6-11.3); Monocytes % 8.2 % (3.3-12.3); Neutrophils % 70.7 % (41.7-73.7); Nucleated Red Blood Cells % 0.1 % (0-0); Platelets 237 thou/uL (152-406); RBC Red Blood Cell Count 4.45 M/uL (3.86-4.86); Red Cell Distribution Width 14.7 % (12.1-15.2)
[2024-10-08 06:21] LABS: Anion Gap 9.6 mEq/L (5.0-15.0); Magnesium 2.1 mg/dL (1.6-2.4); Phosphorus 3.7 mg/dL (2.5-4.9); Potassium 3.6 mEq/L (3.5-5.1)
[2024-10-08 08:45] LABS: Atypical Lymphocytes 2 %; Band Neutrophils 1 % (0-1); Differential Total Cells Count 100; Eosinophils 3 % (0-3); Lymphocytes 25 % (15-42); Metamyelocytes 2 % (0-0); Monocytes 4 % (0-10); Myelocytes 1 % (0-0); Segmented Neutrophils 62 % (40-80)
[2024-10-08 08:46] LABS: Blood Morphology Comment NOT SEEN (NOT SEEN); Platelet Estimate ADEQ; Platelets Clumped FEW; Toxic Granulation NOTED
[2024-10-08] MEDS: POTASSIUM CL SA 10 MEQ TAB PO ONE (10:24)
--- NOTE | 2024-10-08 10:57 | P.PN ---
Date of Service: 10/07/24 Subjective Awaiting HH to be setup ROS 10 point ROS as noted above, otherwise negative Physical Exam General: Alert and Oriented x3, NAD, afebrile HEENT: Atraumatic, Normocephalic Neck: Supple, 2+ carotid pulse no bruit Respiratory: Normal air movement, Rhonchi/gurgles (right lung space), on 3l Cardiovascular: Normal pulses, Irregular heart rate/rhythm (mild tachycardia) Capillary refill: <2 Seconds Gastrointestinal: Normal active bowel sounds, Soft and benign on palpation Musculoskeletal: No clubbing Integumentary: No rashes Neurological: Normal speech, Normal tone Vitals Reviewed Problem list Acute hypoxic respiratory failure secondary to COPD exacerbation associated with bilateral pneumonia and flu A Severe Sepsis secondary to bilateral pneumonia and flu A Hypokalemia Hyperglycemia History of Abdominal Aortic Aneurysm CAD status post quadruple bypass Substance abuse Plan Acute hypoxic respiratory failure secondary to COPD exacerbation associated with bilateral pneumonia and flu A Severe Sepsis secondary to bilateral pneumonia and flu A -3/4 blood cultures positive for haemophilus influenza sensitive to Rocephin -Procal elevated at 6, continue appropriate abx with Rocephin -IV abx ordered with HH, SN and PT -continue Tamiflu 75 mg BID-completed Decreased PO intake -nutritional shakes -reported d/t sickness for one week Hypokalemia -replace PRN -monitor in AM labs Hyperglycemia -monitor in AM labs Abdominal aneurysm CAD status post quadruple bypass -Stent to aneurysm Jun 2024 -Follow-up outpatient -Continue home medications Substance abuse -chews tobacco -reports marijuana use -Cessation education provided DVT PPx lovenox Full code LOS 2 to 3 days Discharge Plan: Home
[2024-10-08 11:40] VITALS: O2SAT 94
--- NOTE | 2024-10-08 11:53 | P.DS ---
Admission Date: 10/02/24 Discharge Date: 10/08/24 Disposition: DC HOME/HOME HEALTH CARE Discharge Condition: GOOD Reason for Admission: Acute hypoxic respiratory failure 2/2 PNA, FluA, COPD exacerbation Brief History of Present Illness: Greta Crespo is a 64 year old female with Pmhx abdominal aneurysm, COPD, CAD status post quadruple bypass who presents to the ED with complaints of fever, productive cough, and shortness of breath for 1 week. She reports her family members sick with upper respiratory and flulike symptoms. On examination, Greta was to short of breath to speak, family spoke for her. Reports Greta has been s leeping all week, reports COPD without oxygen but has not had an exacerbation for years, rhonchi to right lung space, on 4 LNC. She was unable to tolerate the Bipap in the ED. Laboratory evaluation significant for left shift neutrophils 88, serum glucose 125, lactic acid 2.5, potassium 3.0, total bili 1.2, BNP 2532, Flu A. CXR Reports "extensive bilateral pneumonia pattern, small right pleural ef fusion." Greta will be admitted to hospitalist service for further evaluation and treatment of acute hypoxic respiratory failure secondary to COPD exacerbation associated with pneumonia and flu A. Hospital Course: Problem list Acute hypoxic respiratory failure secondary to COPD exacerbation associated with bilateral pneumonia and flu A Severe Sepsis secondary to bilateral pneumonia and flu A Hypokalemia Hyperglycemia History of Abdominal Aortic Aneurysm CAD status post quadruple bypass Substance abuse Patient was admitted to the hospital for pneumonia, influenza A. Blood cultures grew haemophilus influenza sensitive to ceftriaxone. She was seen by infectious disease who recommends a total of 2 weeks of IV antibiotics. IV antibiotics have been arranged to be received through 10/17/2024, midline catheter is in place and home health has been arranged. Patient did need oxygen during her stay in the hospital but has been weaned off, she is also been working well with physical therapy. She will continue home health with senior living, PT and IV antibiotics at home. Continue home medications as previously prescribed Follow-up with your primary care doctor in 1 to 2 weeks Vital Signs/Physical Exam: Temp Pulse Resp BP Pulse Ox 97.4 F 87 16 135/81 94 10/08/24 08:00 10/08/24 10:10/08/24 08:00 10/08/24 10:10/08/24 08:00 General: Alert, In no apparent distress, Oriented x3 HEENT: Atraumatic, PERRLA Neck: Supple, JVD not distended Respiratory: Clear to auscultation bilaterally, Normal air movement Cardiovascular: Regular rate/rhythm, Normal S1 S2 Gastrointestinal: Normal bowel sounds, No tenderness Musculoskeletal: No tenderness Integumentary: No rashes Neurological: Normal speech, Normal tone, Normal affect Laboratory Data at Discharge: WBC 5.00 thou/uL (4.3-10.9) 10/08/24 05:39 Hgb 13.5 g/dL (12.0-15.0) 10/08/24 05:39 Hct 40.1 % (36.0-45.0) 10/08/24 05:39 Plt Count 237 thou/uL (152-406) 10/08/24 05:39 PT 13.6 SECONDS (9.4-12.5) H 10/02/24 13:26 INR 1.30 10/02/24 13:26 APTT 33.1 SECONDS (24.3-36.9) 10/02/24 13:26 Sodium 143 mEq/L (136-145) 10/08/24 05:39 Potassium 3.6 mEq/L (3.5-5.1) 10/08/24 05:39 BUN 16 mg/dL (7-18) 10/08/24 05:39 Creatinine 0.56 mg/dL (0.55-1.02) 10/08/24 05:39 Glucose 142 mg/dL (74-106) H 10/08/24 05:39 Phosphorus 3.7 mg/dL (2.5-4.9) 10/08/24 05:39 Magnesium 2.1 mg/dL (1.6-2.4) 10/08/24 05:39 Total Bilirubin 1.2 mg/dL (0.2-1.0) H 10/02/24 13:26 AST 27 U/L (15-37) 10/02/24 13:26 ALT 17 U/L (13-56) 10/02/24 13:26 Alkaline Phosphatase 69 U/L (45-117) 10/02/24 13:26 Home Medications: Albuterol Sulfate [Ventolin Hfa] 18 gm IH PRN PRN 12/26/14 Aspirin Chewable [Aspirin Chewable*] 81 mg PO DAILY 12/26/14 Metoprolol Tartrate [Lopressor*] 50 mg PO BID #60 tab 12/28/14 Simvastatin [Zocor*] 40 mg PO BEDTIME #30 tablet 12/28/14 Alprazolam 2 mg PO DAILY PRN 10/03/24 Divalproex ER [Depakote *ER] 250 mg PO DAILY 10/03/24 Empagliflozin [Jardiance] 10 mg PO DAILY 10/03/24 Hydrocodone 10/APAP 325 [[place] 10/325*] 1 tab PO Q6H PRN 10/03/24 Ranolazine [Ranolazine ER] 500 mg PO DAILY 10/03/24 Varenicline Tartrate 1 mg PO DAILY 10/03/24 Physician Discharge Instructions: Patient was admitted to the hospital for pneumonia, influenza A. Blood cultures grew haemophilus influenza sensitive to ceftriaxone. She was seen by infectious disease who recommends a total of 2 weeks of IV antibiotics. IV antibiotics have been arranged to be received through 10/17/2024, midline catheter is in place and home health has been arranged. Patient did need oxygen during her stay in the hospital but has been weaned off, she is also been working well with physical therapy. She will continue home health with senior living, PT and IV antibiotics at home. Continue home medications as previously prescribed Follow-up with your primary care doctor in 1 to 2 weeks Diet: Regular Activity: Fall precautions Followup: Yonas Marie DO, DO [Primary Care Provider] - Time spent managing pt's care (in minutes): 45
[2024-10-08 12:06] VITALS: BP 137/68; TEMP 97.3
== END 2024-10-08 12:42 | disposition home or self-care (01) | DRG 871 ==
LOC: ER 12:46 → ERHOLD 15:15 → 2ND 16:57
PROVIDERS: ADMIT Internal Medicine; ATTEND Hospitalist
DX: A41.3 Sepsis due to Hemophilus influenzae (principal); J10.00 Influenza due to other identified influenza virus with unspecified type of pneumonia; J96.01 Acute respiratory failure with hypoxia; J44.0 Chronic obstructive pulmonary disease with (acute) lower respiratory infection; J44.1 Chronic obstructive pulmonary disease with (acute) exacerbation; I71.40 Abdominal aortic aneurysm, without rupture, unspecified; R65.20 Severe sepsis without septic shock; E87.70 Fluid overload, unspecified; E87.6 Hypokalemia; I25.10 Atherosclerotic heart disease of native coronary artery without angina pectoris; R73.9 Hyperglycemia, unspecified; Z95.5 Presence of coronary angioplasty implant and graft; Z11.52 Encounter for screening for COVID-19; Z95.1 Presence of aortocoronary bypass graft; Z72.0 Tobacco use
CPT/HCPCS: 36415; 71046; 80048; 80053; 80164; 81001; 83036; 83605; 83735; 83880; 84100; 84145; 85025; 85610; 85730; 87040; 87184; 87205; 87804; 87811; 93005; 94640; 94660; 97116; 97161; 99285; J0696; J1650; J2185; J2919; J3475; J7030; J7050; J7613; J7614; J7644